=== PATIENT | female | born 1980 | race Two or more races ===

== ENCOUNTER 2021-05-29 14:47 | Outpatient (REF) | payer OTHER, SELFPAY | END 2021-05-29 14:48 | disposition home or self-care (01) | LOC: HO.LAB 14:47 | PROVIDERS: Visit Provider Internal Medicine | DX: Z20.822 Contact with and (suspected) exposure to COVID-19 (principal) | CPT/HCPCS: C9803; U0003; U0005 ==

== ENCOUNTER 2021-10-05 17:09 | Emergency (ER) | payer OTHER, SELFPAY | END 2021-10-05 18:08 | disposition left against medical advice (07) | PROVIDERS: Emergency Provider Emergency Medicine | DX: R42 Dizziness and giddiness (principal); R11.0 Nausea ==

== ENCOUNTER 2021-10-18 21:54 | Emergency (ER) | payer OTHER, SELFPAY ==
--- NOTE | ~2021-10-18 | XR_ITS ---
EXAMINATION: XR LUMBOSACRAL SPINE CLINICAL INFORMATION: Back pain. COMPARISON: None TECHNIQUE: Three views of the lumbosacral spine. FINDINGS: Lumbar vertebrae have normal height and normal alignment. There is no fracture or bone destruction. There is mild degenerative lipping at the anterior endplates of lower thoracic and lumbar vertebrae. Mild degenerative facet joint arthrosis at the lumbosacral junction. Lumbar disc heights are normal. No spondylolysis is or spondylolysis. XR/XR lumbar spine 2-3V IMPRESSION: 1. No acute abnormality. 2. Mild degenerative spondylosis of the lumbar spine.
[2021-10-18 21:57] VITALS: BP 150/88; PULSE 94; RESP 18; TEMP 36.3; O2SAT 99; BMI 32.1
[2021-10-19 00:01] LABS: Appearance Urine CLEAR; Color Urine STRAW; Glucose Urine UA >=1000 MG/DL (NEG); Leukocyte Esterase Urine NEG (NEG); Nitrite Urine NEG (NEG); Urine Blood NEG (NEG); Urine Ketones NEG (NEG); Urine Protein NEG (NEG-TRACE)
[2021-10-19 00:02] LABS: UACC Culture Trigger NO
[2021-10-19 00:04] LABS: UPreg QC Valid YES; Urine Pregnancy NEGATIVE (NEGATIVE)
[2021-10-19 00:48] LABS: RBC Urine 0 /HPF (0); Squamous Epithelial Cell Urine 2+ /LPF; WBC Urine 0-2 /HPF (0-4)
--- NOTE | 2021-10-19 01:02 | ED_ITS ---
HPI - Back Pain/Injury General Chief Complaint: Back Pain/Injury Stated Complaint: left lower back pain Time Seen by Provider: 10/18/21 23:04 Source: patient Mode of arrival: ambulatory Limitations: no limitations History of Present Illness HPI Narrative: 41-year-old female presents to ED for low back pain for 2 weeks that's worse on movement. Patient's secondary complaint is that she wants to get tested for to make sure there is no . Patient denies any abdominal pain, nausea, vomiting, fever, chills, flank, dysuria, hematuria, or vaginal bleeding. Related Data Allergies Allergy/AdvReac Type Severity Reaction Status Date / Time No Known Allergies Allergy Verified 10/18/21 23:12 Review of Systems Review of Systems: Yes all other systems are reviewed and are negative Constitutional: Constitutional: Reports as per HPI and Reports no additional constitutional complaints Eyes: Eyes: Reports as per HPI and Reports no additional eye complaints ENT: Reports system reviewed and no additional complaints, except as documented and Reports as per HPI Cardiovascular: Cardiovascular: Reports as per HPI and Reports no additional cardiovascular complaints Respiratory: Respiratory: Reports as per HPI and Reports no additional respiratory complaints Gastrointestinal: Gastrointestinal: Reports as per HPI and Reports no additional gastrointestinal complaints Musculoskeletal: Musculoskeletal: Reports no additional musculoskeletal complaints, Reports as per HPI and Reports back pain Neurologic: Reports system reviewed and no additional complaints, except as documented and Reports as per HPI Psychiatric: Psychiatric: Reports no additional psychiatric complaints and Reports as per HPI [facility] Social History Social History Advance Directives: No Advance Directives Information Provided: Yes Patient : No Physical Exam Vital Signs: Vital Signs: Last Vital Signs Temp 97.3 F 10/18/21 21:57 Pulse 94 10/18/21 21:57 Resp 18 10/18/21 21:57 BP 150/88 H 10/18/21 21:57 Pulse Ox 99 10/18/21 21:57 BMI result Body Mass Index 32.1 Const: General: cooperative, healthy appearing, comfortable, no acute distress, well developed, alert, awake and Physically active Orientation/consciousness: patient oriented x3 HENMT: Head: Yes normal to inspection, Yes No palpable skull fracture present, Yes normocephalic, Yes atraumatic and No abrasion Eyes: General: appearance normal, both eyes and all related structures Neck: Neck: Yes normal visual inspection, Yes full ROM, Yes no lymphadenopathy, Yes no meningeal signs, Yes trachea midline, Yes supple, No anterior neck swelling and No tender Chest: Chest palpation & inspection: normal inspection of the chest and normal palpation of entire chest wall Resp: Effort & Inspection: normal respiratory effort and able to speak in complete sentences Auscultation: clear to auscultation bilaterally Cardio: Jugular venous distension: no JVD Heart sounds: S1 normal heart sound present and S2 normal heart sound present GI: Inspection: Yes normal to inspection and No abdominal wall ecchymosis Palpation (GI): Soft to palpation, not firm, nontender, no guarding and not rigid : General: No CVA tenderness and Yes no CVA tenderness Back/Spine/Pelvis: Back: no CVA tenderness, No CVA tenderness and back tenderness (lumbar) Skin: General skin exam: no rashes or lesions noted and elasticity normal Neuro: General: patient oriented x3, gait normal, no meningeal signs and CN's II-XI intact bilaterally Cranial nerves: Yes CN's II-XII intact bilaterally Extrem: General: Yes normal to inspection and Yes full ROM Psych: Appearance: grossly normal, well kempt and not disheveled Course Course Course Narrative: Lumbar x-ray and urine ordered. Reevaluation(s) Reevaluation #1: Urine negative for infection or . Lumbar x-ray show arthritis. Patient refused pain medication will follow-up with OBGYN because she still believes she is although she taken three test that were negative. Patient has normal gait. Patient denies any urinary/bowel incontinence. Not suspecting cord compression or epidural abscess.. Time: 01:04 MDM - Back Pain/Injury MDM Narrative Medical decision making narrative: Lumbar radicular past Lab Data Labs: Lab Results 10/18/21 10/18/21 Range/Units 23:51 23:51 Urine Color STRAW Urine Appearance CLEAR Urine pH 6.0 (5.0-8.0) Ur Specific [place] 1.010 (1.005-1.025) Urine Protein NEG (NEG-TRACE) MG/DL Urine Glucose (UA) >=1000 H (NEG) MG/DL Urine Ketones NEG (NEG) MG/DL Urine Blood NEG (NEG) Urine Nitrite NEG (NEG) Ur Leukocyte Esterase NEG (NEG) Urine RBC 0 (0) /HPF Urine WBC 0-2 (0-4) /HPF Ur Squamous Epith Cells 2+ /LPF Urine Bacteria NONE /LPF Urine Test NEGATIVE (NEGATIVE) Discharge Plan Discharge Clinical Impression: Lumbar radiculopathy Patient Disposition: Home, Self-Care Instructions: Lumbar Radiculopathy (ED) Additional Instructions: Corbin radiograf?a muestra que tiene artritis de la columna lumbar. Corbin orina result? negativa para infecci?n y negativa para embarazo. Regrese al servicio de urgencias de inmediato si tiene incontinencia urinaria / intestinal, dolor abdominal, n?useas, v?mitos, fiebre, escalofr?os, disuria, hematuria o cualquier otro s?ntoma que le preocupe. Po un seguimiento con el proveedor de atenci?n primaria. Interventions: ED Discharge Assessment Last Done: 10/19/21 01:20 Discharge Date/Time: 10/19/21 01:26 Print Language: Pashto
--- NOTE | 2021-10-19 01:07 | PC.NURSE ---
PT TEST WAS NEGATIVE AND PT AND BELIEVE PT IS . PT HAS A REGULAR OBGYN AND WILL F/U WITH HER AT THIS TIME SHE DECLINED ALL MEDICATION AT THIS TIME. PT WILL GET HER HORMONES AND LEVELS CHECKED WITH HER OBGYN.
--- NOTE | 2021-10-19 01:25 | PC.NURSE ---
PT MED RETURNED TO [facility] PT DECLINES ALL MEDS DO TO BELIEVES SHE IS AND WILL F/U WITH OBGYN MAY USE OTC TYLENOL FOR PAIN.
== END 2021-10-19 01:26 | disposition home or self-care (01) ==
PROVIDERS: Physician Assistant; Emergency Provider Emergency Medicine; PCP Internal Medicine
DX: M54.16 Radiculopathy, lumbar region (principal); M54.50 Low back pain, unspecified; Z79.899 Other long term (current) drug therapy
CPT/HCPCS: 72100; 81001; 81003; 81025; 99283; 99284

== ENCOUNTER 2022-02-15 11:51 | Emergency (ER) | payer OTHER, SELFPAY ==
--- NOTE | ~2022-02-15 | XR_ITS ---
EXAMINATION: XR CHEST CLINICAL INFORMATION: Cough. COMPARISON: None TECHNIQUE: 2 views of the chest were obtained. FINDINGS: No significant abnormality is noted involving the heart, lungs, mediastinum, bony thorax or soft tissues. XR/XR chest 2V IMPRESSION: Unremarkable chest exam.
[2022-02-15 12:48] VITALS: BP 129/75; PULSE 102; RESP 18; TEMP 38.8; O2SAT 97; BMI 28.8
[2022-02-15 13:31] LABS: COVID-19 Test Negative (Negative); IDNOW Serial# 16C4AD1C; Influenza A Negative (Negative); Influenza B2 Negative (Negative)
[2022-02-15 14:44] VITALS: BP 124/64; PULSE 104; RESP 18; TEMP 38.6; O2SAT 98
[2022-02-15] MEDS: Ibuprofen 600 MG TABLET PO (14:54)
--- NOTE | 2022-02-15 15:08 | ED_ITS ---
HPI - URI/Sore Throat General Chief Complaint: Upper Respiratory Symptoms Stated Complaint: Covid symptoms Time Seen by Provider: 02/15/22 13:47 History of Present Illness HPI Narrative: Patient complains of fever cough body aches and fatigue as well as nasal congestion, the cough there is no sputum there is no chest pain no difficulty breathing, no sore throat, no difficulty swallowing no abdominal pain no nausea vomiting Related Data Previous Rx's Medication Instructions Recorded acetaminophen 500 mg tablet 1,000 mg PO QID PRN #30 tab 02/15/22 ibuprofen 600 mg tablet 600 mg PO Q6H PRN #20 tab 02/15/22 Allergies Allergy/AdvReac Type Severity Reaction Status Date / Time No Known Allergies Allergy Verified 02/15/22 12:46 Review of Systems Review of Systems: Positive for cough fever body aches and nasal congestion Negatives are no dizziness no weakness no confusion no stiff neck no headache no sore throat no chest pain no sputum no shortness of breath no abdominal pain no nausea vomiting or diarrhea no skin rash Yes all other systems are reviewed and are negative PMFSH Past Medical History Source: nursing notes reviewed Medical History (Updated 02/15/22 @ 15:10 by MAX Gaona) Diabetes Social History Social History Advance Directives: No Advance Directives Information Provided: No Patient : No Physical Exam Vital Signs: Vital Signs: Last Vital Signs Temp 101.4 F H 02/15/22 14:44 Pulse 104 H 02/15/22 14:44 Resp 18 02/15/22 14:44 BP 124/64 02/15/22 14:44 Pulse Ox 98 02/15/22 14:44 BMI result Body Mass Index 28.8 General appearance no acute distress The eyes no redness or discharge The pharynx no redness swelling or exudate, membranes are moist Neck is supple Chest clear to auscultation bilateral Heart no murmur Abdomen soft nontender Skin no rash Extremities full range of motion x4 Course Course Course Narrative: Patient tested negative for COVID and flu, but does have a heavy it exposure in that she was [employer] for a patient who has COVID She has triple vaccination but it is likely that this is COVID despite the negative test She has a fever but is otherwise well-appearing eating and drinking normally tolerating p.o. and breathing comfortably and is discharged MDM - URI/Sore Throat Lab Data Labs: Lab Results 02/15/22 02/15/22 Range/Units 12:55 12:55 COVID-19 (LILIANA) Negative (Negative) COVID-19 Clin Com See Note Influenza Type A (SANGEETA) Negative (Negative) Influenza Type B (SANGEETA) Negative (Negative) Influenza A & B Note See Note Discharge Plan Discharge Clinical Impression: Acute viral syndrome Patient Disposition: Home, Self-Care Additional Instructions: Your COVID and flu tests were negative today, but the symptoms of fever cough congestion could certainly be COVID You had a very close exposure so best plan is take off work for 1 week and keep a distance from vulnerable people as there is still a good chance you have COVID Return any time for difficulty breathing vomiting any worse condition or any concerns Drink plenty of fluids, Tylenol or Motrin as needed for fever and body aches Prescriptions: New ibuprofen 600 mg tablet 600 mg PO Q6H PRN (Reason: fever or pain) Qty: 20 0RF acetaminophen 500 mg tablet 1,000 mg PO QID PRN (Reason: pain) Qty: 30 0RF Stand Alone Forms: Work/School Release Interventions: ED Discharge Assessment Last Done: 02/15/22 15:21 Discharge Date/Time: 02/15/22 15:22
== END 2022-02-15 15:22 | disposition home or self-care (01) ==
PROVIDERS: Emergency Provider Emergency Medicine
DX: B34.9 Viral infection, unspecified (principal); Z20.822 Contact with and (suspected) exposure to COVID-19; R50.9 Fever, unspecified; E11.9 Type 2 diabetes mellitus without complications
CPT/HCPCS: 71046; 87502; 87635; 99283; 99284

== ENCOUNTER 2022-10-14 14:56 | Emergency (ER) | payer OTHER, SELFPAY ==
--- NOTE | ~2022-10-14 | XR_ITS ---
EXAMINATION: XR HAND, RIGHT CLINICAL INFORMATION: Pain after injury COMPARISON: None TECHNIQUE: PA, lateral, and oblique views of the right hand. FINDINGS: Visualized portion of the distal radius and ulna demonstrate no fracture. There is ulnar negative variance. Carpal rows are well aligned without carpal bone fracture. No metacarpal or phalangeal fracture. Minimal degenerative changes of scattered IP joints. There appears to be mild focal soft tissue swelling adjacent to the proximal second PIP joint. No radiopaque foreign body. Vascular calcifications noted. XR/XR hand RT 2V IMPRESSION: Minimal degenerative changes of the right hand without fracture.
--- NOTE | 2022-10-14 16:13 | ED_ITS ---
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 Patient states that the other day she jammed it and it still hurts. Patient denies any dizziness, lightheadedness, abdominal pain, nausea, vomiting, fever, chills, blurry vision, double vision, loss of vision, chest pain, difficulty breathing, shortness of breath, back pain, night sweats, pain with urination, increased urinary frequency, increased urinary urgency, blood in her urine or stool, syncope or a near syncopal episode, bowel incontinence, bladder incontinence, bowel retention, bladder retention, or any other complaints at this time. Onset (ago): day(s) Location: right and upper extremity Radiation: non-radiation Severity: mild Severity scale (1-10): 3 Quality: aching and dull Pain Consistency: constant Relieving factors: none Exacerbating factors: none Associated symptoms: denies other symptoms Treatments prior to arrival: none Related Data Previous Rx's Medication Instructions Recorded acetaminophen 500 mg tablet 1,000 mg PO QID PRN pain #30 tabs 02/15/22 ibuprofen 600 mg tablet 600 mg PO Q6H PRN fever or pain 02/15/22 #20 tabs Allergies Allergy/AdvReac Type Severity Reaction Status Date / Time No Known Allergies Allergy Verified 02/15/22 12:46 Review of Systems Constitutional: Constitutional: Reports no additional constitutional complaints, Denies chills, Denies fever(s) and Denies night sweats Eyes: Eyes: Reports no additional eye complaints, Denies blurry vision, Denies change in vision, Denies diplopia, Denies eye discharge, Denies loss of vision and Denies eye pain ENT: Denies dizziness Cardiovascular: Cardiovascular: Reports no additional cardiovascular complaints, Denies chest pain, Denies lightheadedness, Denies Loss of Consciousness and Denies dyspnea Respiratory: Respiratory: Reports no additional respiratory complaints and Denies dyspnea Gastrointestinal: Gastrointestinal: Reports no additional gastrointestinal complaints, Denies abdominal pain, Denies melena, Denies hematochezia, Denies change in bowel habits and Denies change in stool character Genitourinary: Genitourinary: Denies hematuria, Denies urinary frequency, Denies dysuria, Denies urinary incontinence, Denies urinary hesitancy and Denies urinary urgency Musculoskeletal: Musculoskeletal: Reports no additional musculoskeletal complaints, Denies numbness and Denies tingling Comments: right hand pain Neurologic: Denies dizziness, Denies loss of vision, Denies numbness and Denies tingling Psychiatric: Psychiatric: Reports no additional psychiatric complaints Endocrine: Endocrine: Reports no additional endocrine complaints Hematologic/Lymphatic: Hematologic/Lymphatic: Reports no additional hematologic/lymphatic complaints Allergic/Immunologic: Allergic/Immunologic: Reports no additional allergic/immunologic complaints [facility] Past Medical History Attestation statement: The following information was validated with the patient. Source: old records reviewed Medical History Diabetes Physical Exam ED Vital Signs: Vital Signs - 24 hr 10/14/22 16:14 Temperature 98.0 F Pulse Rate 82 Respiratory Rate 18 Blood Pressure 137/69 Pulse Oximetry 98 Oxygen Delivery Method Room Air BMI result Body Mass Index 32.1 Const General: cooperative, no acute distress, alert and awake Nutritional Appearance: well nourished Orientation/consciousness: patient oriented x3 Limitations: no limitations HENMT Head: Yes normal to inspection and Yes atraumatic Ears: hearing grossly normal bilaterally and external ears normal General nose exam: Normal external nose present, no nasal discharge noted and no epistaxis Face and sinus: Yes normal facial exam, No abrasion and No laceration Mouth: Normal oral and palatal mucosa present, no drooling and no muffled voice Eyes General: appearance normal, both eyes and all related structures Periorbital: periorbital findings normal Eyelids: Yes eyelids normal Conjunctivae: conjunctivae normal Pupils: Equal, round and reactive pupils present EOM: EOMs intact bilaterally Neck Neck: Yes normal visual inspection, Yes full ROM and Yes no lymphadenopathy Chest Chest palpation & inspection: normal inspection of the chest Resp Effort & Inspection: normal respiratory effort and able to speak in complete sentences Auscultation: clear to auscultation bilaterally Cardio Rate: regular rate Rhythm: regular rhythm GI Inspection: Yes normal to inspection Neuro General: patient oriented x3 and moves all extremities Cranial nerves: Yes Equal, round and reactive pupils present Cognition (Neuro): normal cognition Motor exam (neuro): 5/5 motor strength present throughout Sensory Exam: Normal double simultaneous stimulation for sensation Coordination: [id number] test normal Extrem General: Yes normal to inspection, Yes full ROM and Yes capillary refill normal Psych Appearance: grossly normal Mental Status: mental status grossly normal Affect: normal affect Attitude: cooperative Thought process: Normal thought process present Thought content: Normal thought content present Insight: Good insight present (Psych) Medical Decision Making MDM Narrative Medical decision making narrative: Patient is a 42 year old assigned female at with no reported medical history presenting to the emergency department today with right hand pain. Patient's physical exam was unremarkable. Patient's right hand x-ray showed no acute process. I explained my physical exam findings as well as all test results to the patient. I answered all questions asked by the patient. I stressed the importance of the patient taking her medication as prescribed. I stressed the importance of the patient following up with her primary care provider. I stressed the importance of the patient returning to the emergency department immediately if her symptoms were to worsen or if she were to develop any dizziness, shortness of breath, difficulty breathing, chest pain, blurry vision, loss of vision, nausea, vomiting, abdominal pain, fever, chills, back pain, or any other complaints. Patient verbalized agreement and understanding with this treatment plan and discharge. Medical Records Medical records reviewed: Yes I reviewed the patient's medical records. Imaging Data Right hand x-ray: Attestation: I personally reviewed and interpreted this imaging study as follows: My impression: No acute process. Radiologist's impression: EXAMINATION: XR HAND, RIGHT CLINICAL INFORMATION: Pain after injury? COMPARISON: None? TECHNIQUE: PA, lateral, and oblique views of the right hand. FINDINGS: Visualized portion of the distal radius and ulna demonstrate no fracture. There is ulnar negative variance. Carpal rows are well aligned without carpal bone fracture. No metacarpal or phalangeal fracture. Minimal degenerative changes of scattered IP joints. There appears to be mild focal soft tissue swelling adjacent to the proximal second PIP joint. No radiopaque foreign body. Vascular calcifications noted.? XR/XR hand RT 2V IMPRESSION: Minimal degenerative changes of the right hand without fracture. Dictated By: Enrique Chu MD Signed By: Electronically signed by Enrique Chu MD 10/14/22 1556 Discharge Plan Discharge Clinical Impression: Hand sprain Patient Disposition: Home, Self-Care Instructions: Sprain (ED) Additional Instructions: Follow up with your primary care provider. Return to the emergency department immediately if your symptoms worsen or if you develop any dizziness, shortness of breath, difficulty breathing, chest pain, blurry vision, loss of vision, nausea, vomiting, abdominal pain, fever, chills, back pain, or any other complaints. Po un seguimiento con alfaro proveedor de atenci?n primaria. Regrese al departamento de emergencias de inmediato si saurav s?ntomas empeoran o si presenta mareos, falta de aire, dificultad para respirar, dolor de pecho, visi?n borrosa, p?rdida de la visi?n, n?useas, v?mitos, dolor abdominal, fiebre, escalofr?os, dolor de espalda o cualquier otras quejas. Prescriptions: No Action ibuprofen 600 mg tablet 600 mg PO Q6H PRN (Reason: fever or pain) Qty: 20 0RF acetaminophen 500 mg tablet 1,000 mg PO QID PRN (Reason: pain) Qty: 30 0RF Referrals: [facility] [place] Family Medicine [Provider Group] (Call to establish and follow up with a primary care provider. If you already have a primary care provider, please follow up with them. Llame para establecer y hacer un seguimiento con un proveedor de atenci?n primaria. Si ya tiene un proveedor de atenci?n primaria, po un seguimiento con ?l.) [facility] [place] Primary CareAlexandra [Provider Group] (Call to establish and follow up with a primary care provider. If you already have a primary care provider, please follow up with them. Llame para establecer y hacer un seguimiento con un proveedor de atenci?n primaria. Si ya tiene un proveedor de atenci?n primaria, po un seguimiento con ?l.) [facility] [place] Primary CareMignon [Provider Group] (Call to establish and follow up with a primary care provider. If you already have a primary care provider, please follow up with them. Llame para establecer y hacer un seguimiento con un proveedor de atenci?n primaria. Si ya tiene un proveedor de atenci?n primaria, po un seguimiento con ?l.) Stand Alone Forms: Work/School Release Print Language: Yi
[2022-10-14 16:14] VITALS: BP 137/69; PULSE 82; RESP 18; TEMP 36.7; O2SAT 98; BMI 32.1
--- OUTSIDE RECORDS SUMMARY | 2022-10-14 16:34 | XMS_ITS | Continuity of Care Document ---
:1980 Author Organization [facility] Address [address] [place] [address]- Care Team Providers Name Role Phone Edwina PHAM, Natalie Primary Care Physician [facility]counter [facility] Date(s): 11/30/21 - 12/30/21 [facility] [address] [place] [id number]- Encounter Diagnosis Diabetes (Discharge Diagnosis) - 12/01/21 Allergies, Adverse Reactions, Alerts No Known Allergies Immunizations Given and Recorded Vaccine Date Status Refusal Reason SARS-CoV-2 (COVID-19) mRNA BNT-162b2 vac 11/29/21 Recorde d SARS-CoV-2 (COVID-19) mRNA BNT-162b2 vac 04/14/21 Given tetanus/diphtheria/pertussis, acel(Tdap) 10/06/20 Given influenza virus vaccine, inactivated 10/06/20 Given Medications atorvastatin 10 mg oral tablet 1 tablet = 10 mg, By Mouth, Daily, label in cape ver[place]an daily in bedtime, # 90 tablet, 3 Refills, Maintenance, 09/30/20 11:11:00 EST, [facility], 156, cm,09/30/20 10:26:00 EST, Height Start Date: 09/30/20 Status: OrderedFreestyle Lite Test Strips See Instructions, # 90 each, Refills 3, Tot. Refills 3, Maintenance, take bs qhs for insulin dependent Type 2 Diabetes Mellitus, 10/23/21 11:03:00 EST, Supply, 156, cm, 10/23/21 10:39:00 EST, Height Start Date: 10/23/21 Stop Date: 10/18/22 Status: Orderedgabapentin 300 mg oral capsule 300 mg, 1, capsule, By Mouth, Daily at bedtime, label in c[place] ver[place], # 90 capsule, Refills 1, Tot. Refills 1, Maintenance, 09/12/20 10:24:00 EDT, Route to Pharmacy Electronically, [facility], 156, cm, 09/12/20 9:33:00 EDT, Height Start Date: 09/12/20 Status: OrderedLantus Solostar Pen 100 units/mL subcutaneous solution = 55 units, Subcutaneous Infusion, Daily, daily in am label in cape ver[place]an, # 13.5 mL, 11 Refills, Maintenance, 12/01/21 12:58:00 EST, [facility], 156, cm, 10/23/21 11:14:00 EST, Height Start Date: 12/01/21 Status: Orderedlisinopril 10 mg oral tablet 10 mg, 1, tablet, By Mouth, Daily, # 90 tablet, Refills 3, Tot. Refills 3, Maintenance, 10/23/21 11:15:00 EST, Route to Pharmacy Electronically, [facility], Partial fill upon patient request if the prescription is for a schedule II opi... Start Date: 10/23/21 Status: OrderedmetFORMIN 1000 mg oral tablet, extended release 1 tablet = 1,000 mg, By Mouth, 2 times a day, label in cape verdean, # 180 tablet, 4 Refills, Maintenance, 03/29/21 9:27:00 EDT, [facility], TO REPLACE 500 mg tablets - please review change with patient, 156, cm, 03/29/21 8:21:00 EDT, Height Start Date: 03/29/21 Stop Date: 06/22/22 Status: Orderedsertraline 100 mg oral tablet 1 tablet = 100 mg, By Mouth, Daily, instr cape verdean; start after completing 50 mg tablets, # 30 tablet, 11 Refills, Maintenance, 07/10/21 15:51:00 EDT, Tablet, [facility], Partial fill upon patient request if the prescription is for a sc... Start Date: 07/10/21 Status: OrderedTrulicity Pen 1.5 mg/0.5 mL subcutaneous solution 0.5 mL = 1.5 mg, Subcutaneous Injection, Every Saturday, rotate injection sites label in cape verdean, #2 mL, 11 Refills, Maintenance, 09/30/20 10:55:00 EST, Solution, [facility], Partial fill upon patient request, 156, cm, 09/30/20 10:2... Start Date: 09/30/20 Status: Ordered Problem List Condition Effective Dates Status Health Status Informant Atopic dermatitis(Confirmed) Active Overweight (BMI 25.0-29.9)(Confirmed) Active Essential hypertension(Confirmed) Active Hyperlipidemia(Confirmed) Active Insulin dependent type 2 diabetes Active mellitus(Confirmed) Depression with anxiety(Confirmed) Active Obese class I(Confirmed) Active Diabetic retinopathy(Confirmed) Active Diagnosis Diagnosis Type Effective Dates Health Status Clinical Serv ice Informant Diabetes Discharge 12/01/21 Non-Specified Diagnosis Social History Social History Type Response Smoking Status Never (less than 100 in life time) entered on: 09/12/20 Sex
--- OUTSIDE RECORDS SUMMARY | 2022-10-14 16:34 | XMS_ITS | Continuity of Care Document ---
:1980 Author Organization [facility] Address [address] [place] [address]- Care Team Providers Name Role Phone Natalie Bland MD Primary Care Physician Encounter [facility] Date(s): 01/08/22 - 03/22/22 [facility] [address] [place] [id number] Attending Physician: Enzo Anderson MD Admitting Physician: Enzo Anderson MD Allergies, Adverse Reactions, Alerts No Known Allergies Immunizations Given and Recorded Vaccine Date Status Refusal Reason SARS-CoV-2 (COVID-19) mRNA BNT-162b2 vac 11/29/21 Recorde d SARS-CoV-2 (COVID-19) mRNA BNT-162b2 vac 04/14/21 Given tetanus/diphtheria/pertussis, acel(Tdap) 10/06/20 Given influenza virus vaccine, inactivated 10/06/20 Given Medications atorvastatin 10 mg oral tablet 1 tablet = 10 mg, By Mouth, Daily, label in belgian daily in bedtime, # 90 tablet, 3 Refills, Maintenance, 09/30/20 11:11:00 EST, [facility], 156, [...] By Mouth, Daily at bedtime, label in belgian, # 90 capsule, Refills 1, Tot. Refills 1, Maintenance, 09/12/20 10:24:00 EDT, Route to Pharmacy Electronically, [facility]., 156, cm, 09/12/20 9:33:00 EDT, Height Start Date: 09/12/20 Status: OrderedJardiance 10 mg oral tablet 1 tablet = 10 mg, By Mouth, Daily in AM, # 30 tablet, 2 Refills, Maintenance, 03/22/22 15:57:00 EDT,Tablet, [facility], Partial fill upon patient request if the prescription is for a schedule II opioid drug., 156, cm, 03/22/22 15:05:0... Start Date: 03/22/22 Status: OrderedLantus Solostar Pen 100 units/mL subcutaneous solution = 55 units, Subcutaneous Infusion, Daily, daily in am label in belgian, # 15 mL, 11 Refills, Maintenance, 03/22/22 15:57:00 EDT, [facility]., 156, cm, 03/22/22 15:05:00 EDT, Height Start Date: 03/22/22 Status: Orderedlidocaine 5% topical cream 1 application, Topically, 3 times a day, PRN Pain , Moderate, # 15 Gm, 0 Refills, Maintenance, 01/05/22 13:02:00 EST, Cream, [facility]., Partial fill upon patient request if the prescription is for a schedule II opioid drug., 1 applica... Start Date: 01/05/22 Status: Orderedlisinopril 10 mg oral tablet 10 mg, 1, tablet, By Mouth, Daily, # 90 tablet, Refills 3, Tot. Refills 3, Maintenance, 10/23/21 11:15:00 EST, Route to Pharmacy Electronically, [facility], Partial fill upon patient request if the prescription is for a schedule II opi... Start Date: 10/23/21 Status: Orderedmeloxicam 15 mg oral tablet 1 tablet = 15 mg, By Mouth, Daily, # 14 tablet, 0 Refills, Maintenance, 01/24/22 15:01:00 EST, Tablet, [facility]., Partial fill upon patient request if the prescription is for a schedule II opioid drug., 156, cm, 01/24/22 14:31:00 EST,... Start Date: 01/24/22 Stop Date: 02/07/22 Status: OrderedmetFORMIN 1000 mg oral tablet, extended release 1 tablet = 1,000 mg, By Mouth, 2 times a day, label in belgian, # 180 tablet, 4 Refills, Maintenance, 03/29/21 9:27:00 EDT, [facility], TO REPLACE 500 mg tablets - please review change with patient, 156, cm, 03/29/21 8:21:00 EDT, Height Start Date: 03/29/21 Stop Date: 06/22/22 Status: Orderedsertraline 100 mg oral tablet 1 tablet = 100 mg, By Mouth, Daily, instr belgian; start after completing 50 mg tablets, # 30 tablet, 11 Refills, Maintenance, 07/10/21 15:51:00 EDT, Tablet, [facility], Partial fill upon patient request if the prescription is for a sc... 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
--- OUTSIDE RECORDS SUMMARY | 2022-10-14 16:34 | XMS_ITS | Continuity of Care Document ---
:1980 Author Organization [facility] Address [address] [place] [address]- Care Team Providers Name Role Phone Kim Archer DO Primary Care Physician Encounter [facility] Date(s): 03/06/21 - 04/30/21 [facility] [address] [place] [id number] Attending Physician: Campbell Russell MD Admitting Physician: Campbell Russell MD Allergies, Adverse Reactions, Alerts Substance Reaction Severity Status NKA Active Immunizations Given and Recorded Vaccine Date Status Refusal Reason SARS-CoV-2 (COVID-19) mRNA BNT-162b2 vac 04/14/21 Given tetanus/diphtheria/pertussis, acel(Tdap) 10/06/20 Given influenza virus vaccine, inactivated 10/06/20 Given Medications atorvastatin 10 mg oral tablet 1 tablet = 10 mg, By Mouth, Daily, label in belarusian daily in bedtime, # 90 tablet, 3 Refills, Maintenance, 09/30/20 11:11:00 EST, [facility], [facility], 156, cm,09/30/20 10:26:00 EST, Height Start Date: 09/30/20 Status: OrderedBlood Pressure Monitor See Instructions, # 1 each, Refills 0, Tot. Refills 0, Maintenance, Use to check Blood pressure daily dx: I10 on lisinopril, 03/29/21 9:30:00 EDT, Compound Start Date: 03/29/21 Status: OrderedCANCEL METFORMIN 1000 mg script CANCEL METFORMIN 1000 mg script, See Instructions, # 1 each, Refills 0, Tot. Refills 0, Maintenance,continue metformin 500 mg 2 tablets BID, 03/06/21 10:33:00 EDT, Supply, 156, cm, 03/06/21 10:12:00 EDT, Height Start Date: 03/06/21 Status: Orderedcetirizine 10 mg oral tablet 1 tablet = 10 mg, By Mouth, Daily, # 30 tablet, 0 Refills, Maintenance, 04/25/21 13:48:00 EDT, Tablet, [facility]., Partial fill upon patient request if the prescription is for a schedule II opioid drug., 156, cm, 04/25/21 13:01:00 EDT,... Start Date: 04/25/21 Status: OrderedFreestyle Lite Lancets See Instructions, # 600 each, Refills 2, Tot. Refills 2, Maintenance, Take BS daily in AM use as directed for Type 2 Diabetes Mellitus, 09/12/20 10:05:00 EDT, Supply, 156, cm, 09/12/20 9:33:00 EDT, Height Start Date: 09/12/20 Stop Date: 06/09/21 Status: OrderedFreestyle Lite Monitor See Instructions, # 3 each, Refills 2, Tot. Refills 2, Maintenance, take blood sugar daily use as directed for Type 2 Diabetes Mellitus, 09/12/20 10:07:00 EDT, Supply, 156, cm, 09/12/20 9:33:00 EDT, Height Start Date: 09/12/20 Stop Date: 06/09/21 Status: OrderedFreestyle Lite Test Strips See Instructions, # 600 each, Tot. Refills 2, Maintenance, take bs daily in am use as directed for Type 2 Diabetes Mellitus, 09/12/20 10:08:00 EDT, Supply, 156, cm, 09/12/20 9:33:00 EDT, Height Start Date: 09/12/20 Stop Date: 12/11/20 Status: Orderedgabapentin 300 mg oral capsule 300 mg, 1, capsule, By Mouth, Daily at bedtime, label in belarusian, # 90 capsule, Refills 1, Tot. Refills 1, Maintenance, 09/12/20 10:24:00 EDT, Route to Pharmacy Electronically, [facility]., 156, cm, 09/12/20 9:33:00 EDT, Height Start Date: 09/12/20 Status: OrderedLac-Hydrin 12% lotion 1 application, Topically, 2 times a day, instr belarusian, # 567 Gm, 1 Refills, Maintenance, 01/12/21 16:46:00 EST, Lotion, [facility], Partial fill upon patient request if the prescription is for a schedule II opioid drug., 1 application... Start Date: 01/12/21 Status: OrderedLantus Solostar Pen 100 units/mL subcutaneous solution = 55 units, Subcutaneous Infusion, Daily, daily in am label in belarusian, # 13.5 mL, 11 Refills, Maintenance, 01/30/21 14:01:00 EDT, [facility], 156, cm, 01/12/21 16:08:00 EST, Height Start Date: 01/30/21 Status: Orderedlisinopril 5 mg oral tablet 5 mg, 1, tablet, By Mouth, Daily, label in belarusian, # 90 tablet, Refills 11, Tot. Refills 11, Maintenance, 09/12/20 10:21:00 EDT, Route to Pharmacy Electronically, [facility], 156, cm, 09/12/20 9:33:00 EDT, Height Start Date: 09/12/20 Status: OrderedmetFORMIN 1000 mg oral tablet, extended release 1 tablet = 1,000 mg, By Mouth, 2 times a day, label in belarusian, # 180 tablet, 4 Refills, Maintenance, 03/29/21 9:27:00 EDT, [facility], TO REPLACE 500 mg tablets - please review change with patient, 156, cm, 03/29/21 8:21:00 EDT, Height Start Date: 03/29/21 Stop Date: 06/22/22 Status: Orderedsertraline 25 mg oral tablet 1 tablet = 25 mg, By Mouth, Daily, label in belarusian, # 30 tablet, 11 Refills, Maintenance, 12/09/20 9:47:00 EST, Tablet, [facility], Partial fill upon patient request if the prescription is for a schedule II opioid drug., 156, cm, 09/18... Start Date: 12/09/20 Status: OrderedTrulicity Pen 1.5 mg/0.5 mL subcutaneous solution 0.5 mL = 1.5 mg, Subcutaneous Injection, Every week, rotate injection sites label in belarusian, # 2 mL, 11 Refills, Maintenance, 09/30/20 10:55:00 EST, Solution, [facility], [facility] upon patient request, 156, cm, 09/30/20 10:26:00... Start Date: 09/30/20 Status: Ordered Problem List Condition Effective Dates Status Health Status Informant Atopic dermatitis(Confirmed) Active Diabetes(Confirmed) Active Essential hypertension(Confirmed) Active Hyperlipidemia(Confirmed) Active Depression with anxiety(Confirmed) Active Fatty liver disease, Active nonalcoholic(Confirmed) Obesity (BMI 30.0-34.9)(Confirmed) Active Diabetic retinopathy(Confirmed) Active Social History Social History Type Response Smoking Status Never (less than 100 in life time) entered on: 09/12/20 Sex
--- OUTSIDE RECORDS SUMMARY | 2022-10-14 16:34 | XMS_ITS | Continuity of Care Document ---
:1980 Author Organization [facility] Address [address] [place] [phone]- Care Team Providers Name Role Phone Kim Archer DO Primary Care Physician [facility] Date(s): 07/27/21 - 08/26/21 [facility] [address] [place] [id number] Attending Physician: AdmShavon chong Admitting Physician: AdmtrShavon Referring Physician: Admtr, Ar8 Allergies, Adverse Reactions, Alerts Substance Reaction Severity Status NKA Active Immunizations Given and Recorded Vaccine Date Status Refusal Reason SARS-CoV-2 (COVID-19) mRNA BNT-162b2 vac 04/14/21 Given tetanus/diphtheria/pertussis, acel(Tdap) 10/06/20 Given influenza virus vaccine, inactivated 10/06/20 Given Medications atorvastatin 10 mg oral tablet 1 tablet = 10 mg, By Mouth, Daily, label in singaporean daily in bedtime, # 90 tablet, 3 Refills, Maintenance, 09/30/20 11:11:00 EST, [facility], Partial fill upon patient request, 156, cm,09/30/20 10:26:00 EST, Height Start Date: 09/30/20 Status: Orderedcetirizine 10 mg oral tablet 1 tablet = 10 mg, By Mouth, Daily, # 30 tablet, 0 Refills, Maintenance, 04/25/21 13:48:00 EDT, Tablet, [facility]., Partial fill upon patient request if the prescription is for a schedule II opioid drug., 156, cm, 04/25/21 13:01:00 EDT,... Start Date: 04/25/21 Status: Orderedgabapentin 300 mg oral capsule 300 mg, 1, capsule, By Mouth, Daily at bedtime, label in singaporean, # 90 capsule, Refills 1, Tot. Refills 1, Maintenance, 09/12/20 10:24:00 EDT, Route to Pharmacy Electronically, [facility], 156, cm, 09/12/20 9:33:00 EDT, Height Start Date: 09/12/20 Status: OrderedLac-Hydrin 12% lotion 1 application, Topically, 2 times a day, instr singaporean, # 567 Gm, 1 Refills, Maintenance, 01/12/21 16:46:00 EST, Lotion, [facility], Partial fill upon patient request if the prescription is for a schedule II opioid drug., 1 application... Start Date: 01/12/21 Status: OrderedLantus Solostar Pen 100 units/mL subcutaneous solution = 55 units, Subcutaneous Infusion, Daily, daily in am label in singaporean, # 13.5 mL, 11 Refills, Maintenance, 01/30/21 14:01:00 EDT, [facility], 156, cm, 01/12/21 16:08:00 EST, Height Start Date: 01/30/21 Status: Orderedlisinopril 5 mg oral tablet 5 mg, 1, tablet, By Mouth, Daily, label in singaporean, # 90 tablet, Refills 11, Tot. Refills 11, Maintenance, 09/12/20 10:21:00 EDT, Route to Pharmacy Electronically, [facility], 156, cm, 09/12/20 9:33:00 EDT, Height Start Date: 09/12/20 Status: OrderedmetFORMIN 1000 mg oral tablet, extended release 1 tablet = 1,000 mg, By Mouth, 2 times a day, label in singaporean, # 180 tablet, 4 Refills, Maintenance, 03/29/21 9:27:00 EDT, [facility], TO REPLACE 500 mg tablets - please review change with patient, 156, cm, 03/29/21 8:21:00 EDT, Height Start Date: 03/29/21 Stop Date: 06/22/22 Status: Orderedsertraline 100 mg oral tablet 1 tablet = 100 mg, By Mouth, Daily, instr singaporean; start after completing 50 mg tablets, # 30 tablet, 11 Refills, Maintenance, 07/10/21 15:51:00 EDT, Tablet, [facility]., Partial fill upon patient request if the prescription is for a sc... Start Date: 07/10/21 Status: Orderedsertraline 50 mg oral tablet 1 tablet = 50 mg, By Mouth, Daily, instr singaporean, # 14 tablet, 0 Refills, Maintenance, 07/10/21 15:51:00 EDT, Tablet, [facility]., Partial fill upon patient request if the prescription is for a schedule II opioid drug., 156, cm, ... Start Date: 07/10/21 Stop Date: 07/24/21 Status: OrderedTrulicity Pen 1.5 mg/0.5 mL subcutaneous solution 0.5 mL = 1.5 mg, Subcutaneous Injection, Every week, rotate injection sites label in singaporean, # 2 mL, 11 Refills, Maintenance, 09/30/20 10:55:00 EST, Solution, [facility]., Partial fill upon patient request, 156, cm, 09/30/20 10:26:00... 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
--- OUTSIDE RECORDS SUMMARY | 2022-10-14 16:34 | XMS_ITS | Continuity of Care Document ---
:1980 Author Organization [facility] Address [address] [place] [address]- Care Team Providers Name Role Phone Kim Archer DO Primary Care Physician Encounter [facility] Date(s): 10/10/21 - 11/09/21 [facility] [address] [place] [id number]- Encounter Diagnosis Diabetes (Discharge Diagnosis) - 10/10/21 Allergies, Adverse Reactions, Alerts Substance Reaction Severity Status NKA Active Immunizations Given and Recorded Vaccine Date Status Refusal Reason SARS-CoV-2 (COVID-19) mRNA BNT-162b2 vac 04/14/21 Given tetanus/diphtheria/pertussis, acel(Tdap) 10/06/20 Given influenza virus vaccine, inactivated 10/06/20 Given Medications atorvastatin 10 mg oral tablet 1 tablet = 10 mg, By Mouth, Daily, label in georgian daily in bedtime, # 90 tablet, 3 Refills, Maintenance, 09/30/20 11:11:00 EST, [facility], [...] By Mouth, Daily at bedtime, label in georgian, # 90 capsule, Refills 1, Tot. Refills 1, Maintenance, 09/12/20 10:24:00 EDT, Route to Pharmacy Electronically, [facility], 156, cm, 09/12/20 9:33:00 EDT, Height Start Date: 09/12/20 Status: OrderedLantus Solostar Pen 100 units/mL subcutaneous solution = 55 units, Subcutaneous Infusion, Daily, daily in am label in georgian, # 13.5 mL, 11 Refills, Maintenance, 10/10/21 17:10:00 EST, [facility], 156, cm, 07/10/21 14:53:00 EDT, Height Start Date: 10/10/21 Status: Orderedlisinopril 10 mg oral tablet 10 mg, 1, tablet, By Mouth, Daily, # 90 tablet, Refills 3, Tot. Refills 3, Maintenance, 10/23/21 11:15:00 EST, Route to Pharmacy Electronically, [facility], Partial fill upon patient request if the prescription is for a schedule II opi... Start Date: 10/23/21 Status: OrderedmetFORMIN 1000 mg oral tablet, extended release 1 tablet = 1,000 mg, By Mouth, 2 times a day, label in georgian, # 180 tablet, 4 Refills, Maintenance, 03/29/21 9:27:00 EDT, [facility], TO REPLACE 500 mg tablets - please review change with patient, 156, cm, 03/29/21 8:21:00 EDT, Height Start Date: 03/29/21 Stop Date: 06/22/22 Status: Orderedsertraline 100 mg oral tablet 1 tablet = 100 mg, By Mouth, Daily, instr georgian; start after completing 50 mg tablets, # 30 tablet, 11 Refills, Maintenance, 07/10/21 15:51:00 EDT, Tablet, [facility]., Partial fill upon patient request if the prescription is for a sc... Start Date: 07/10/21 Status: OrderedTrulicity Pen 1.5 mg/0.5 mL subcutaneous solution 0.5 mL = 1.5 mg, Subcutaneous Injection, Every Saturday, rotate injection sites label in georgian, #2 mL, 11 Refills, Maintenance, 09/30/20 10:55:00 EST, [facility], [facility], [...] Status Clinical Serv ice Informant Diabetes Discharge 10/10/21 Non-Specified Diagnosis Social History Social History Type Response Smoking Status Never (less than 100 in life time) entered on: 09/12/20 Sex
--- OUTSIDE RECORDS SUMMARY | 2022-10-14 16:34 | XMS_ITS | Continuity of Care Document ---
:1980 Author Organization [facility] Address [address] [place] [address]- Care Team Providers Name Role Phone Kim Archer DO Primary Care Physician En[place] [facility] [place](s): 10/10/21 - 11/09/21 [facility] [address] [place] [id number]- Allergies, Adverse Reactions, Alerts Substance Reaction Severity Status NKA Active Immunizations Given and Recorded Vaccine Date Status Refusal Reason SARS-CoV-2 (COVID-19) mRNA BNT-162b2 vac 04/14/21 Given tetanus/diphtheria/pertussis, acel(Tdap) 10/06/20 Given influenza virus vaccine, inactivated 10/06/20 Given Medications atorvastatin 10 mg oral tablet 1 tablet = 10 mg, By Mouth, Daily, label in maltese daily in bedtime, # 90 tablet, 3 Refills, Maintenance, 09/30/20 11:11:00 EST[facility], 156, [...] By Mouth, Daily at bedtime, label in maltese, # 90 capsule, Refills 1, Tot. Refills 1, Maintenance, 09/12/20 10:24:00 EDT, Route to Pharmacy Electronically, [facility], 156, cm, 09/12/20 9:33:00 EDT, Height Start Date: 09/12/20 Status: OrderedLantus Solostar Pen 100 units/mL subcutaneous solution = 55 units, Subcutaneous Infusion, Daily, daily in am label in maltese, # 13.5 mL, 11 Refills, Maintenance, 10/10/21 17:10:00 EST, [facility], 156, cm, 07/10/21 14:53:00 EDT, Height Start Date: 10/10/21 Status: Orderedlisinopril 10 mg oral tablet 10 mg, 1, tablet, By Mouth, Daily, # 90 tablet, Refills 3, Tot. Refills 3, Maintenance, 10/23/21 11:15:00 EST, Route to Pharmacy Electronically, [facility], Partial fill upon patient request if the prescription is for a schedule II opi... Start Date: 10/23/21 Status: OrderedmetFORMIN 1000 mg oral tablet, extended release 1 tablet = 1,000 mg, By Mouth, 2 times a day, label in maltese, # 180 tablet, 4 Refills, Maintenance, 03/29/21 9:27:00 EDT, [facility], TO REPLACE 500 mg tablets - please review change with patient, 156, cm, 03/29/21 8:21:00 EDT, Height Start Date: 03/29/21 Stop Date: 06/22/22 Status: Orderedsertraline 100 mg oral tablet 1 tablet = 100 mg, By Mouth, Daily, instr maltese; start after completing 50 mg tablets, # 30 tablet, 11 Refills, Maintenance, 07/10/21 15:51:00 EDT, Tablet, [facility], Partial fill upon patient request if the prescription is for a sc... Start Date: 07/10/21 Status: OrderedTrulicity Pen 1.5 mg/0.5 mL subcutaneous solution 0.5 mL = 1.5 mg, Subcutaneous Injection, Every Saturday, rotate injection sites label in maltese, #2 mL, 11 Refills, Maintenance, 09/30/20 10:55:00 EST, Solution, [facility], Partial fill upon patient request, 156, cm, [...]
--- OUTSIDE RECORDS SUMMARY | 2022-10-14 16:34 | XMS_ITS | Continuity of Care Document ---
:1980 Author Organization [facility] Address [address] [place] [address]- Care Team Providers Name Role Phone Edwina PHAM, Natalie Primary Care Physician Encounter [facility] [place] Date(s): 01/24/22 - 02/23/22 [facility] [address] [place] [id number]- Allergies, Adverse Reactions, Alerts No Known Allergies Immunizations Given and Recorded Vaccine Date Status Refusal Reason SARS-CoV-2 (COVID-19) mRNA BNT-162b2 vac 11/29/21 Recorde d SARS-CoV-2 (COVID-19) mRNA BNT-162b2 vac 04/14/21 Given tetanus/diphtheria/pertussis, acel(Tdap) 10/06/20 Given influenza virus vaccine, inactivated 10/06/20 Given Medications atorvastatin 10 mg oral tablet 1 tablet = 10 mg, By Mouth, Daily, label in estonian daily in bedtime, # 90 tablet, 3 Refills, Maintenance, 09/30/20 11:11:00 EST, [facility], 156, [...] By Mouth, Daily at bedtime, label in estonian, # 90 capsule, Refills 1, Tot. Refills 1, Maintenance, 09/12/20 10:24:00 EDT, Route to Pharmacy Electronically, [facility], 156, cm, 09/12/20 9:33:00 EDT, Height Start Date: 09/12/20 Status: OrderedLantus Solostar Pen 100 units/mL subcutaneous solution = 55 units, Subcutaneous Infusion, Daily, daily in am label in estonian, # 13.5 mL, 11 Refills, Maintenance, 12/01/21 12:58:00 EST, [facility], 156, cm, 10/23/21 11:14:00 EST, Height Start Date: 12/01/21 Status: Orderedlidocaine 5% topical cream 1 application, Topically, 3 times a day, PRN Pain , Moderate, # 15 Gm, 0 Refills, Maintenance, 01/05/22 13:02:00 EST, Cream, [facility] Partial fill upon patient request if the prescription is for a schedule II opioid drug., 1 applica... Start Date: 01/05/22 Status: Orderedlisinopril 10 mg oral tablet 10 mg, 1, tablet, By Mouth, Daily, # 90 tablet, Refills 3, Tot. Refills 3, Maintenance, 10/23/21 11:15:00 EST, Route to Pharmacy Electronically, [facility], Partial fill upon patient request if the prescription is for a schedule II opi... Start Date: 10/23/21 Status: Orderedmeloxicam 15 mg oral tablet 1 tablet = 15 mg, By Mouth, Daily, # 14 tablet, 0 Refills, Maintenance, 01/24/22 15:01:00 EST, Tablet, [facility]., Partial fill upon patient request if the prescription is for a schedule II opioid drug., 156, cm, 01/24/22 14:31:00 EST,... Start Date: 01/24/22 Stop Date: 02/07/22 Status: OrderedmetFORMIN 1000 mg oral tablet, extended release 1 tablet = 1,000 mg, By Mouth, 2 times a day, label in estonian, # 180 tablet, 4 Refills, Maintenance, 03/29/21 9:27:00 EDT, [facility] TO [facility] 500 mg tablets - please review change with patient, 156, cm, 03/29/21 8:21:00 EDT, Height Start Date: 03/29/21 Stop Date: 06/22/22 Status: Orderedsertraline 100 mg oral tablet 1 tablet = 100 mg, By Mouth, Daily, instr estonian; start after completing 50 mg tablets, # 30 tablet, 11 Refills, Maintenance, 07/10/21 15:51:00 EDT, Tablet, [facility]., Partial fill upon patient request if the prescription is for a sc... Start Date: 07/10/21 Status: OrderedTrulicity Pen 1.5 mg/0.5 mL subcutaneous solution 0.5 mL = 1.5 mg, Subcutaneous Injection, Every Saturday, rotate injection sites label in estonian, #2 mL, 11 Refills, Maintenance, 09/30/20 10:55:00 EST, Solution, [facility]., Partial fill upon patient request, 156, cm, [...]
--- OUTSIDE RECORDS SUMMARY | 2022-10-14 16:34 | XMS_ITS | Continuity of Care Document ---
:1980 Author Organization [facility] Address [address] [place] [address]- Care Team Providers Name Role Phone Edwina PHAM, Natalie Primary Care Physician Encounter [facility] [place] Date(s): 06/11/22 - 08/19/22 [facility] [address] [place] [id number]- Attending Physician: Not on Staff, Attending MD Allergies, Adverse Reactions, Alerts No Known Allergies Immunizations Given and Recorded Vaccine Date Status Refusal Reason SARS-CoV-2 (COVID-19) mRNA BNT-162b2 vac 11/29/21 Recorde d SARS-CoV-2 (COVID-19) mRNA BNT-162b2 vac 04/14/21 Given tetanus/diphtheria/pertussis, acel(Tdap) 10/06/20 Given influenza virus vaccine, inactivated 10/06/20 Given Medications BD SHORT PEN NDL 52Sm1ha 31GX5/16 NEDL BD SHORT PEN NDL 88Gu0wh 31GX5/16 NEDL, See Instructions, # 120 Unknown, 5 Refills, Maintenance, [facility], 08/02/22 15:31:00 EDT, 156, cm, 07/19/22 14:26:00 EDT, Height Start Date: 08/02/22 Status: OrderedFLUoxetine 20 mg oral capsule Refills 0, Maintenance, 07/20/22 8:33:00 EDT, Partial fill upon patient request if the prescription is for a schedule II opioid drug. Start Date: 07/20/22 Status: OrderedFreestyle Lite Test Strips See Instructions, # 100 each, Refills 11, Tot. Refills 11, Maintenance, take bs TID for insulin dependent Type 2 Diabetes Mellitus, 07/20/22 8:25:00 EDT, Supply, 156, cm, 07/19/22 14:26:00 EDT, Height Start Date: 07/20/22 Stop Date: 07/04/25 Status: OrderedLantus Solostar Pen 100 units/mL subcutaneous solution = 55 units, Subcutaneous Infusion, Daily, daily in am label in polish, # 15 mL, 11 Refills, Maintenance, 03/22/22 15:57:00 EDT, [facility], 156, cm, 03/22/22 15:05:00 EDT, Height Start Date: 03/22/22 Status: Orderedlisinopril 10 mg oral tablet 10 mg, 1, tablet, By Mouth, Daily, # 90 tablet, Refills 3, Tot. Refills 3, Maintenance, 10/23/21 11:15:00 EST, Route to Pharmacy Electronically, [facility], Partial fill upon patient request if the prescription is for a schedule II opi... Start Date: 10/23/21 Status: OrderedMetFORMIN (Eqv-Glucophage XR) 500 mg oral tablet, extended release See Instructions, [place] 2 TABLETA P[facility] [place], # 120 tablet, 11 Refills, [facility], 156, cm, 03/22/22 15:05:00 EDT, Height Start Date: 07/10/22 Status: OrderedPrenatal Multivitamins with Folic Acid 0.8 mg oral tablet 0 Refills, Maintenance, 07/20/22 8:32:00 EDT, Partial fill upon patient request if the prescription is for a schedule II opioid drug. Start Date: 07/20/22 Status: OrderedtraZODone 100 mg oral tablet Refills 0, Maintenance, 07/20/22 8:33:00 EDT, Partial fill upon patient request if the prescription is for a schedule II opioid drug. Start Date: 07/20/22 Status: Ordered Problem List Condition Confirmation Course Effective Dates Status Health I nformant Status Atopic dermatitis Confirmed Active Overweight (BMI Confirmed Active 25.0-29.9) Essential Confirmed Active hypertension Hyperlipidemia Confirmed Active Insulin dependent Confirmed Active type 2 diabetes mellitus Depression with Confirmed Active anxiety Obese class I Confirmed Active Diabetic retinopathy Confirmed Active Social History Social History Type Response Smoking Status Never (less than 100 in life time) entered on: 09/12/20 Sex Patient Care team information PersonnelName: Natalie Bland MD Address: Address: [address] [place] [address] [place], [place] [address]
--- OUTSIDE RECORDS SUMMARY | 2022-10-14 16:34 | XMS_ITS | Continuity of Care Document ---
:1980 Author Organization [facility] Address [address] [place] [address]- Care Team Providers Name Role Phone Kim Archer DO Primary Care Physician [facility]counter [facility] Date(s): 10/23/21 - 11/22/21 [facility] [address] [place] [id number] Allergies, Adverse Reactions, Alerts Substance Reaction Severity Status NKA Active Immunizations Given and Recorded Vaccine Date Status Refusal Reason SARS-CoV-2 (COVID-19) mRNA BNT-162b2 vac 04/14/21 Given tetanus/diphtheria/pertussis, acel(Tdap) 10/06/20 Given influenza virus vaccine, inactivated 10/06/20 Given Medications atorvastatin 10 mg oral tablet 1 tablet = 10 mg, By Mouth, Daily, label in namibian daily in bedtime, # 90 tablet, 3 Refills, Maintenance, 09/30/20 11:11:00 EST, [facility] fill upon patient request, 156, [...] By Mouth, Daily at bedtime, label in namibian, # 90 capsule, Refills 1, Tot. Refills 1, Maintenance, 09/12/20 10:24:00 EDT, Route to Pharmacy Electronically, [facility], 156, cm, 09/12/20 9:33:00 EDT, Height Start Date: 09/12/20 Status: OrderedLantus Solostar Pen 100 units/mL subcutaneous solution = 55 units, Subcutaneous Infusion, Daily, daily in am label in namibian, # 13.5 mL, 11 Refills, Maintenance, 10/10/21 17:10:00 EST, [facility], 156, cm, 07/10/21 14:53:00 EDT, Height Start Date: 10/10/21 Status: Orderedlisinopril 10 mg oral tablet 10 mg, 1, tablet, By Mouth, Daily, # 90 tablet, Refills 3, Tot. Refills 3, Maintenance, 10/23/21 11:15:00 EST, Route to Pharmacy Electronically, [facility], Partial fill upon patient request if the prescription is for a schedule II opi... Start Date: 10/23/21 Status: OrderedmetFORMIN 1000 mg oral tablet, extended release 1 tablet = 1,000 mg, By Mouth, 2 times a day, label in namibian, # 180 tablet, 4 Refills, Maintenance, 03/29/21 9:27:00 EDT, [facility], TO REPLACE 500 mg tablets - please review change with patient, 156, cm, 03/29/21 8:21:00 EDT, Height Start Date: 03/29/21 Stop Date: 06/22/22 Status: Orderedsertraline 100 mg oral tablet 1 tablet = 100 mg, By Mouth, Daily, instr namibian; start after completing 50 mg tablets, # 30 tablet, 11 Refills, Maintenance, 07/10/21 15:51:00 EDT, Tablet, [facility], Partial fill upon patient request if the prescription is for a sc... Start Date: 07/10/21 Status: OrderedTrulicity Pen 1.5 mg/0.5 mL subcutaneous solution 0.5 mL = 1.5 mg, Subcutaneous Injection, Every Saturday, rotate injection sites label in namibian, #2 mL, 11 Refills, Maintenance, 09/30/20 10:55:00 EST, Solution, [facility]., Partial fill upon patient request, 156, cm, [...]
--- OUTSIDE RECORDS SUMMARY | 2022-10-14 16:34 | XMS_ITS | Continuity of Care Document ---
:1980 Author Organization [facility] Address [address] [place] [address]- Care Team Providers Name Role Phone Natalie Bland MD Primary Care Physician [place] [facility] [place] 01/05/22 [facility] [address] [place] [address]- Attending Physician: [place] MD Admitting Physician: [place] MD Allergies, Adverse Reactions, Alerts No Known Allergies Immunizations Given and Recorded Vaccine Date Status Refusal Reason SARS-CoV-2 (COVID-19) mRNA BNT-162b2 vac 11/29/21 Recorde d SARS-CoV-2 (COVID-19) mRNA BNT-162b2 vac 04/14/21 Given tetanus/diphtheria/pertussis, acel(Tdap) 10/06/20 Given influenza virus vaccine, inactivated 10/06/20 Given Medications atorvastatin 10 mg oral tablet 1 tablet = 10 mg, By Mouth, Daily, label in haitian daily in bedtime, # 90 tablet, 3 Refills, Maintenance, 09/30/20 11:11:00 EST, [facility], [facility] fill upon patient [...] By Mouth, Daily at bedtime, label in haitian, # 90 capsule, Refills 1, Tot. Refills 1, Maintenance, 09/12/20 10:24:00 EDT, Route to Pharmacy Electronically, [facility], 156, cm, 09/12/20 9:33:00 EDT, Height Start Date: 09/12/20 Status: OrderedLantus Solostar Pen 100 units/mL subcutaneous solution = 55 units, Subcutaneous Infusion, Daily, daily in am label in haitian, # 13.5 mL, 11 Refills, Maintenance, 12/01/21 12:58:00 EST, [facility], 156, cm, 10/23/21 11:14:00 EST, Height Start Date: 12/01/21 Status: Orderedlidocaine 5% topical cream 1 application, Topically, 3 times a day, PRN Pain , Moderate, # 15 Gm, 0 Refills, Maintenance, 01/05/22 13:02:00 EST, Cream, [facility], Partial fill upon patient request if the prescription is for a schedule II opioid drug., 1 applica... Start Date: 01/05/22 Status: Orderedlisinopril 10 mg oral tablet 10 mg, 1, tablet, By Mouth, Daily, # 90 tablet, Refills 3, Tot. Refills 3, Maintenance, 10/23/21 11:15:00 EST, Route to Pharmacy Electronically, [facility], Partial fill upon patient request if the prescription is for a schedule II opi... Start Date: 10/23/21 Status: OrderedmetFORMIN 1000 mg oral tablet, extended release 1 tablet = 1,000 mg, By Mouth, 2 times a day, label in haitian, # 180 tablet, 4 Refills, Maintenance, 03/29/21 9:27:00 EDT, [facility], TO REPLACE 500 mg tablets - please review change with patient, 156, cm, 03/29/21 8:21:00 EDT, Height Start Date: 03/29/21 Stop Date: 06/22/22 Status: Orderedsertraline 100 mg oral tablet 1 tablet = 100 mg, By Mouth, Daily, instr haitian; start after completing 50 mg tablets, # 30 tablet, 11 Refills, Maintenance, 07/10/21 15:51:00 EDT, Tablet, [facility]., Partial fill upon patient request if the prescription is for a sc... Start Date: 07/10/21 Status: OrderedTrulicity Pen 1.5 mg/0.5 mL subcutaneous solution 0.5 mL = 1.5 mg, Subcutaneous Injection, Every Saturday, rotate injection sites label in haitian, #2 mL, 11 Refills, Maintenance, 09/30/20 10:55:00 EST, Solution, [facility]., Partial fill upon patient request, 156, cm, [...]
--- OUTSIDE RECORDS SUMMARY | 2022-10-14 16:34 | XMS_ITS | Continuity of Care Document ---
:1980 Author Organization [facility] Address [address] [place] [phone]- Care Team Providers Name Role Phone Kim Archer DO Primary Care Physician [facility]counter [facility] Date(s): 12/30/20 - 01/29/[address] [id number] Allergies, Adverse Reactions, Alerts Substance Reaction Severity Status NKA Active Immunizations Given and Recorded Vaccine Date Status Refusal Reason tetanus/diphtheria/pertussis, acel(Tdap) 10/06/20 Given influenza virus vaccine, inactivated 10/06/20 Given Medications atorvastatin 10 mg oral tablet 1 tablet = 10 mg, By Mouth, Daily, label in east timorese daily in bedtime, # 90 tablet, 3 Refills, Maintenance, 09/30/20 11:11:00 EST, [facility] upon patient request, 156, cm,09/30/20 10:26:00 EST, Height Start Date: 09/30/20 Status: OrderedFreestyle Lite Lancets See Instructions, # [...] By Mouth, Daily at bedtime, label in east timorese, # 90 capsule, Refills 1, Tot. Refills 1, Maintenance, 09/12/20 10:24:00 EDT, Route to Pharmacy Electronically, [facility], 156, cm, 09/12/20 9:33:00 EDT, Height Start Date: 09/12/20 Status: OrderedLac-Hydrin 12% lotion 1 application, Topically, 2 times a day, instr east timorese, # 567 Gm, 1 Refills, Maintenance, 01/12/21 16:46:00 EST, Lotion, [facility], Partial fill upon patient request if the prescription is for a schedule II opioid drug., 1 application... Start Date: 01/12/21 Status: OrderedLantus Solostar Pen 100 units/mL subcutaneous solution = 35 units, Subcutaneous Infusion, Daily, before a meal label in east timorese, # 12 mL, 11 Refills, Maintenance, 09/12/20 10:20:00 EDT, [facility], 156, cm, 09/12/20 9:33:00 EDT, Height Start Date: 09/12/20 Status: Orderedlisinopril 5 mg oral tablet 5 mg, 1, tablet, By Mouth, Daily, label in east timorese, # 90 tablet, Refills 11, Tot. Refills 11, Maintenance, 09/12/20 10:21:00 EDT, Route to Pharmacy Electronically, [facility], 156, cm, 09/12/20 9:33:00 EDT, Height Start Date: 09/12/20 Status: OrderedmetFORMIN 1000 mg oral tablet, extended release 1 tablet = 1,000 mg, By Mouth, Daily, label in east timorese with evening meal, # 90 tablet, 3 Refills, Maintenance, 11/21/20 9:54:00 EST, [facility] Partial fill upon patient request if theprescription is for a schedule II opioid drug.,... Start Date: 11/21/20 Status: Orderedsertraline 25 mg oral tablet 1 tablet = 25 mg, By Mouth, Daily, label in east timorese, # 30 tablet, 11 Refills, Maintenance, 12/09/20 9:47:00 EST, Tablet, [facility] Partial fill upon patient request if the prescription is for a schedule II opioid drug., 156, cm, 09/18... Start Date: 12/09/20 Status: Orderedtriamcinolone 0.025% topical ointment 1 application, Topically, 2 times a day, for 14 days, instr east timorese, # 60 Gm, 1 Refills, Acute 02/09/21 16:46:00 EDT, 01/12/21 16:46:00 EST, Ointment, [facility] Partial fill upon patient request if the prescription is for a schedule... Start Date: 01/12/21 Stop Date: 02/09/21 Status: OrderedTrulicity Pen 1.5 mg/0.5 mL subcutaneous solution 0.5 mL = 1.5 mg, Subcutaneous Injection, Every week, rotate injection sites label in east timorese, # 2 mL, 11 Refills, Maintenance, 09/30/20 10:55:00 EST, Solution, [facility] Partial fill upon patient request, 156, cm, 09/30/20 10:26:00... Start Date: 09/30/20 Status: Ordered Problem List Condition Effective Dates Status Health Status Informant Atopic dermatitis(Confirmed) Active Diabetes(Confirmed) Active Hyperlipidemia(Confirmed) Active Depression with anxiety(Confirmed) Active Obesity (BMI 30.0-34.9)(Confirmed) Active Diabetic retinopathy(Confirmed) Active Social History Social History Type Response Smoking Status Never (less than 100 in life time) entered on: 09/12/20 Sex
--- OUTSIDE RECORDS SUMMARY | 2022-10-14 16:34 | XMS_ITS | Continuity of Care Document ---
:1980 Author Organization [facility] Address [address] [place] [phone]- Care Team Providers Name Role Phone Kim Archer DO Primary Care Physician [facility] Date[facility]s): 05/05/21 - 06/04/21 [facility] [address] [place] [id number] Attending Physician: Admarlette, Shavon Admitting Physician: AdmtrShavon Referring Physician: Admtr, Ar8 Allergies, Adverse Reactions, Alerts Substance Reaction Severity Status NKA Active Immunizations Given and Recorded Vaccine Date Status Refusal Reason SARS-CoV-2 (COVID-19) mRNA BNT-162b2 vac 04/14/21 Given tetanus/diphtheria/pertussis, acel(Tdap) 10/06/20 Given influenza virus vaccine, inactivated 10/06/20 Given Medications atorvastatin 10 mg oral tablet 1 tablet = 10 mg, By Mouth, Daily, label in english daily in bedtime, # 90 tablet, 3 Refills, Maintenance, 09/30/20 11:11:00 EST, [facility], [...] 0 Refills, Maintenance, 04/25/21 13:48:00 EDT, Tablet, [facility], Partial fill upon patient request if [...] By Mouth, Daily at bedtime, label in english, # 90 capsule, Refills 1, Tot. Refills 1, Maintenance, 09/12/20 10:24:00 EDT, Route to Pharmacy Electronically, [facility] [place] 156, cm, 09/12/20 9:33:00 EDT, Height Start Date: 09/12/20 Status: OrderedLac-Hydrin 12% lotion 1 application, Topically, 2 times a day, instr english, # 567 Gm, 1 Refills, Maintenance, 01/12/21 16:46:00 EST, Lotion, [facility], Partial fill upon patient request if the prescription is for a schedule II opioid drug., 1 application... Start Date: 01/12/21 Status: OrderedLantus Solostar Pen 100 units/mL subcutaneous solution = 55 units, Subcutaneous Infusion, Daily, daily in am label in english, # 13.5 mL, 11 Refills, Maintenance, 01/30/21 14:01:00 EDT, [facility], 156, cm, 01/12/21 16:08:00 EST, Height Start Date: 01/30/21 Status: Orderedlisinopril 5 mg oral tablet 5 mg, 1, tablet, By Mouth, Daily, label in english, # 90 tablet, Refills 11, Tot. Refills 11, Maintenance, 09/12/20 10:21:00 EDT, Route to Pharmacy Electronically, [facility], 156, cm, 09/12/20 9:33:00 EDT, Height Start Date: 09/12/20 Status: OrderedmetFORMIN 1000 mg oral tablet, extended release 1 tablet = 1,000 mg, By Mouth, 2 times a day, label in english, # 180 tablet, 4 Refills, Maintenance, 03/29/21 9:27:00 EDT, [facility], TO REPLACE 500 mg tablets - please review change with patient, 156, cm, 03/29/21 8:21:00 EDT, Height Start Date: 03/29/21 Stop Date: 06/22/22 Status: Orderedpermethrin 5% topical cream 1 application, Topically, Once, Apply to skin from head to soles. Leave on 8-10 hours then wash off,# 60 mL, 0 Refills, Soft Stop, 05/04/21 14:40:00 EDT, Lotion, [facility], Instructions in english;, 1 application Topically Once,Instr... Start Date: 05/04/21 Status: Orderedsertraline 25 mg oral tablet 1 tablet = 25 mg, By Mouth, Daily, label in english, # 30 tablet, 11 Refills, Maintenance, 12/09/20 9:47:00 EST, Tablet, [facility], Partial fill upon patient request if the prescription is for a schedule II opioid drug., 156, kong, 09/18... Start Date: 12/09/20 Status: OrderedTrulicity Pen 1.5 mg/0.5 mL subcutaneous solution 0.5 mL = 1.5 mg, Subcutaneous Injection, Every week, rotate injection sites label in english, # 2 mL, 11 Refills, Maintenance, 09/30/20 10:55:00 EST, Solution, [facility], Partial fill upon patient request, 156, [...]
--- OUTSIDE RECORDS SUMMARY | 2022-10-14 16:34 | XMS_ITS | Continuity of Care Document ---
:1980 Author Organization [facility] Address [address] [place] [address]- Care Team Providers Name Role Phone Kim Archer DO Primary Care Physician Encounter [facility] Date(s): 01/12/21 - 02/11/21 [facility] [address] [place] [id number] Allergies, Adverse Reactions, Alerts Substance Reaction Severity Status NKA Active Immunizations Given and Recorded Vaccine Date Status Refusal Reason tetanus/diphtheria/pertussis, acel(Tdap) 10/06/20 Given influenza virus vaccine, inactivated 10/06/20 Given Medications atorvastatin 10 mg oral tablet 1 tablet = 10 mg, By Mouth, Daily, label in cymro daily in bedtime, # 90 tablet, 3 Refills, Maintenance, 09/30/20 11:11:00 EST, [facility], 156, [...] By Mouth, Daily at bedtime, label in cymro, # 90 capsule, Refills 1, Tot. Refills 1, Maintenance, 09/12/20 10:24:00 EDT, Route to Pharmacy Electronically, [facility], 156, cm, 09/12/20 9:33:00 EDT, Height Start Date: 09/12/20 Status: OrderedLac-Hydrin 12% lotion 1 application, Topically, 2 times a day, instr cymro, # 567 Gm, 1 Refills, Maintenance, 01/12/21 16:46:00 EST, Lotion, [facility], Partial fill upon patient request if the prescription is for a schedule II opioid drug., 1 application... Start Date: 01/12/21 Status: OrderedLantus Solostar Pen 100 units/mL subcutaneous solution = 45 units, Subcutaneous Infusion, Daily, before a meal label in cymro, # 13.5 mL, 11 Refills, Maintenance, 01/30/21 14:01:00 EDT, [facility], 156, cm, 01/12/21 16:08:00 EST, Height Start Date: 01/30/21 Status: Orderedlisinopril 5 mg oral tablet 5 mg, 1, tablet, By Mouth, Daily, label in cymro, # 90 tablet, Refills 11, Tot. Refills 11, Maintenance, 09/12/20 10:21:00 EDT, Route to Pharmacy Electronically, [facility], 156, cm, 09/12/20 9:33:00 EDT, Height Start Date: 09/12/20 Status: OrderedmetFORMIN 1000 mg oral tablet, extended release 1 tablet = 1,000 mg, By Mouth, Daily, label in cymro with evening meal, # 90 tablet, 3 Refills, Maintenance, 11/21/20 9:54:00 EST, [facility] Partial fill upon patient request if theprescription is for a schedule II opioid drug.,... Start Date: 11/21/20 Status: Orderedsertraline 25 mg oral tablet 1 tablet = 25 mg, By Mouth, Daily, label in cymro, # 30 tablet, 11 Refills, Maintenance, 12/09/20 9:47:00 EST, Tablet, [facility] Partial fill upon patient request if the prescription is for a schedule II opioid drug., 156, cm, 09/18... Start Date: 12/09/20 Status: OrderedTrulicity Pen 1.5 mg/0.5 mL subcutaneous solution 0.5 mL = 1.5 mg, Subcutaneous Injection, Every week, rotate injection sites label in cymro, # 2 mL, 11 Refills, Maintenance, 09/30/20 10:55:00 EST, Solution, [facility] Partial fill upon patient request, 156, [...]
--- OUTSIDE RECORDS SUMMARY | 2022-10-14 16:34 | XMS_ITS | Continuity of Care Document ---
:1980 Author Organization [facility] Address [address] [place] [address]- Care Team Providers Name Role Phone Kim Archer DO Primary Care Physician Encounter [facility] Date(s): 04/13/21 - 06/04/21 [facility] [address] [place] [id number] Attending Physician: Campbell Russell MD Admitting Physician: Campbell Russell MD Allergies, Adverse Reactions, Alerts Substance Reaction Severity Status NKA Active Immunizations Given and Recorded Vaccine Date Status Refusal Reason SARS-CoV-2 (COVID-19) mRNA BNT-162b2 vac 04/14/21 Given tetanus/diphtheria/pertussis, acel(Tdap) 10/06/20 Given influenza virus vaccine, inactivated 10/06/20 Given Medications atorvastatin 10 mg oral tablet 1 tablet = 10 mg, By Mouth, Daily, label in [place] daily in bedtime, # 90 tablet, 3 Refills, Maintenance, 09/30/20 11:11:00 EST, [facility], 156, [...] 0 Refills, Maintenance, 04/25/21 13:48:00 EDT, Tablet, [facility] Partial fill upon patient request if the [...] By Mouth, Daily at bedtime, label in [place], # 90 capsule, Refills 1, Tot. Refills 1, Maintenance, 09/12/20 10:24:00 EDT, Route to Pharmacy Electronically, [facility] 156, cm, 09/12/20 9:33:00 EDT, Height Start Date: 09/12/20 Status: OrderedLac-Hydrin 12% lotion 1 application, Topically, 2 times a day, instr [place], # 567 Gm, 1 Refills, Maintenance, 01/12/21 16:46:00 EST, Lotion, [facility], Partial fill upon patient request if the prescription is for a schedule II opioid drug., 1 application... Start Date: 01/12/21 Status: OrderedLantus Solostar Pen 100 units/mL subcutaneous solution = 55 units, Subcutaneous Infusion, Daily, daily in am label in [place], # 13.5 mL, 11 Refills, Maintenance, 01/30/21 14:01:00 EDT, [facility], 156, cm, 01/12/21 16:08:00 EST, Height Start Date: 01/30/21 Status: Orderedlisinopril 5 mg oral tablet 5 mg, 1, tablet, By Mouth, Daily, label in [place], # 90 tablet, Refills 11, Tot. Refills 11, Maintenance, 09/12/20 10:21:00 EDT, Route to Pharmacy Electronically, [facility], 156, cm, 09/12/20 9:33:00 EDT, Height Start Date: 09/12/20 Status: OrderedmetFORMIN 1000 mg oral tablet, extended release 1 tablet = 1,000 mg, By Mouth, 2 times a day, label in [place], # 180 tablet, 4 Refills, Maintenance, 03/29/21 9:27:00 EDT, [facility], TO REPLACE 500 mg tablets - please review change with patient, 156, cm, 03/29/21 8:21:00 EDT, Height Start Date: 03/29/21 Stop Date: 06/22/22 Status: Orderedpermethrin 5% topical cream 1 application, Topically, Once, Apply to skin from head to soles. Leave on 8-10 hours then wash off,# 60 mL, 0 Refills, Soft Stop, 05/04/21 14:40:00 EDT, Lotion, [facility], Instructions in [place];, 1 application Topically Once,Instr... Start Date: 05/04/21 Status: Orderedsertraline 25 mg oral tablet 1 tablet = 25 mg, By Mouth, Daily, label in [place], # 30 tablet, 11 Refills, Maintenance, 12/09/20 9:47:00 EST, Tablet, [facility] Partial fill upon patient request if the prescription is for a schedule II opioid drug., 156, kong, 09/18... Start Date: 12/09/20 Status: OrderedTrulicity Pen 1.5 mg/0.5 mL subcutaneous solution 0.5 mL = 1.5 mg, Subcutaneous Injection, Every week, rotate injection sites label in [place], # 2 mL, 11 Refills, Maintenance, 09/30/20 10:55:00 EST, Solution, [facility] Partial fill upon patient request, 156, cm, [...]
--- OUTSIDE RECORDS SUMMARY | 2022-10-14 16:34 | XMS_ITS | Continuity of Care Document ---
:1980 Author Organization [facility] Address [address] [place] [id number]- Care Team Providers Name Role Phone Kim Archer DO Primary Care Physician En[place] [facility] [place] Date(s): 10/10/21 - 11/16/21 [facility] [address] [place] [id number] Attending Physician: Hellen Orellana MD Admitting Physician: Hellen Orellana MD Referring Physician: Kim Archer DO Allergies, Adverse Reactions, Alerts Substance Reaction Severity Status NKA Active Immunizations Given and Recorded Vaccine Date Status Refusal Reason SARS-CoV-2 (COVID-19) mRNA BNT-162b2 vac 04/14/21 Given tetanus/diphtheria/pertussis, acel(Tdap) 10/06/20 Given influenza virus vaccine, inactivated 10/06/20 Given Medications atorvastatin 10 mg oral tablet 1 tablet = 10 mg, By Mouth, Daily, label in latvian daily in bedtime, # 90 tablet, 3 Refills, Maintenance, 09/30/20 11:11:00 EST, [facility] fill upon patient request, 156, [...] By Mouth, Daily at bedtime, label in latvian, # 90 capsule, Refills 1, Tot. Refills 1, Maintenance, 09/12/20 10:24:00 EDT, Route to Pharmacy Electronically, [facility], 156, cm, 09/12/20 9:33:00 EDT, Height Start Date: 09/12/20 Status: OrderedLantus Solostar Pen 100 units/mL subcutaneous solution = 55 units, Subcutaneous Infusion, Daily, daily in am label in latvian, # 13.5 mL, 11 Refills, Maintenance, 10/10/21 17:10:00 EST, [facility], 156, cm, 07/10/21 14:53:00 EDT, Height Start Date: 10/10/21 Status: Orderedlisinopril 10 mg oral tablet 10 mg, 1, tablet, By Mouth, Daily, # 90 tablet, Refills 3, Tot. Refills 3, Maintenance, 10/23/21 11:15:00 EST, Route to Pharmacy Electronically, [facility], Partial fill upon patient request if the prescription is for a schedule II opi... Start Date: 10/23/21 Status: OrderedmetFORMIN 1000 mg oral tablet, extended release 1 tablet = 1,000 mg, By Mouth, 2 times a day, label in latvian, # 180 tablet, 4 Refills, Maintenance, 03/29/21 9:27:00 EDT, [facility], TO REPLACE 500 mg tablets - please review change with patient, 156, cm, 03/29/21 8:21:00 EDT, Height Start Date: 03/29/21 Stop Date: 06/22/22 Status: Orderedsertraline 100 mg oral tablet 1 tablet = 100 mg, By Mouth, Daily, instr latvian; start after completing 50 mg tablets, # 30 tablet, 11 Refills, Maintenance, 07/10/21 15:51:00 EDT, Tablet, [facility], Partial fill upon patient request if the prescription is for a sc... Start Date: 07/10/21 Status: OrderedTrulicity Pen 1.5 mg/0.5 mL subcutaneous solution 0.5 mL = 1.5 mg, Subcutaneous Injection, Every Saturday, rotate injection sites label in latvian, #2 mL, 11 Refills, Maintenance, 09/30/20 10:55:00 EST, Solution, [facility], [facility] fill upon patient request, 156, [...]
--- OUTSIDE RECORDS SUMMARY | 2022-10-14 16:34 | XMS_ITS | Continuity of Care Document ---
:1980 Author Organization [facility] Address [address] [place] [address]- Care Team Providers Name Role Phone Kim Archer DO Primary Care Physician [place] [facility] [place] Date(s): 10/10/21 - 11/09/21 [facility] [address] [place] [id number]- Encounter Diagnosis Diabetes (Discharge Diagnosis) - 10/10/21 Allergies, Adverse Reactions, Alerts Substance Reaction Severity Status NKA Active Immunizations Given and Recorded Vaccine Date Status Refusal Reason SARS-CoV-2 (COVID-19) mRNA BNT-162b2 vac 04/14/21 Given tetanus/diphtheria/pertussis, acel(Tdap) 10/06/20 Given influenza virus vaccine, inactivated 10/06/20 Given Medications atorvastatin 10 mg oral tablet 1 tablet = 10 mg, By Mouth, Daily, label in serbian daily in bedtime, # 90 tablet, 3 Refills, Maintenance, 09/30/20 11:11:00 EST, [facility], [facility] fill upon patient request, [...] By Mouth, Daily at bedtime, label in serbian, # 90 capsule, Refills 1, Tot. Refills 1, Maintenance, 09/12/20 10:24:00 EDT, Route to Pharmacy Electronically, [facility], 156, cm, 09/12/20 9:33:00 EDT, Height Start Date: 09/12/20 Status: OrderedLantus Solostar Pen 100 units/mL subcutaneous solution = 55 units, Subcutaneous Infusion, Daily, daily in am label in serbian, # 13.5 mL, 11 Refills, Maintenance, 10/10/21 17:10:00 EST, [facility], 156, cm, 07/10/21 14:53:00 EDT, Height Start Date: 10/10/21 Status: Orderedlisinopril 10 mg oral tablet 10 mg, 1, tablet, By Mouth, Daily, # 90 tablet, Refills 3, Tot. Refills 3, Maintenance, 10/23/21 11:15:00 EST, Route to Pharmacy Electronically, [facility], Partial fill upon patient request if the prescription is for a schedule II opi... Start Date: 10/23/21 Status: OrderedmetFORMIN 1000 mg oral tablet, extended release 1 tablet = 1,000 mg, By Mouth, 2 times a day, label in serbian, # 180 tablet, 4 Refills, Maintenance, 03/29/21 9:27:00 EDT, [facility], TO REPLACE 500 mg tablets - please review change with patient, 156, cm, 03/29/21 8:21:00 EDT, Height Start Date: 03/29/21 Stop Date: 06/22/22 Status: Orderedsertraline 100 mg oral tablet 1 tablet = 100 mg, By Mouth, Daily, instr serbian; start after completing 50 mg tablets, # 30 tablet, 11 Refills, Maintenance, 07/10/21 15:51:00 EDT, Tablet, [facility] Partial fill upon patient request if the prescription is for a sc... Start Date: 07/10/21 Status: OrderedTrulicity Pen 1.5 mg/0.5 mL subcutaneous solution 0.5 mL = 1.5 mg, Subcutaneous Injection, Every Saturday, rotate injection sites label in serbian, #2 mL, 11 Refills, Maintenance, 09/30/20 10:55:00 EST, [facility], [facility] upon [facility], [...]
--- OUTSIDE RECORDS SUMMARY | 2022-10-14 16:34 | XMS_ITS | Continuity of Care Document ---
:1980 Author Organization [facility] Address [address] [place] [address], [address] [place] [phone]- Care Team Providers Name Role Phone Kim Archer DO Primary Care Physician [place] [facility] [place] - 08/24/21 [facility] [address] [place] [address], [address] [place] [id number] Attending Physician: Shavon Rodas Admitting Physician: Shavon Rodas Referring Physician: AdmtrShavon Allergies, Adverse Reactions, Alerts Substance Reaction Severity Status NKA Active Immunizations Given and Recorded Vaccine Date Status Refusal Reason SARS-CoV-2 (COVID-19) mRNA BNT-162b2 vac 04/14/21 Given tetanus/diphtheria/pertussis, acel(Tdap) 10/06/20 Given influenza virus vaccine, inactivated 10/06/20 Given Medications atorvastatin 10 mg oral tablet 1 tablet = 10 mg, By Mouth, Daily, label in guamanian daily in bedtime, # 90 tablet, 3 Refills, Maintenance, 09/30/20 11:11:00 EST, [facility] fill upon patient request, 156, cm,09/30/20 10:26:00 EST, Height Start Date: 09/30/20 Status: Orderedcetirizine 10 mg oral tablet 1 tablet = 10 mg, By Mouth, Daily, # 30 tablet, 0 Refills, Maintenance, 04/25/21 13:48:00 EDT, Tablet, [facility] Partial fill upon patient request if the prescription is for a schedule II opioid drug., 156, cm, 04/25/21 13:01:00 EDT,... Start Date: 04/25/21 Status: Orderedgabapentin 300 mg oral capsule 300 mg, 1, capsule, By Mouth, Daily at bedtime, label in guamanian, # 90 capsule, Refills 1, Tot. Refills 1, Maintenance, 09/12/20 10:24:00 EDT, Route to Pharmacy Electronically, [facility], 156, cm, 09/12/20 9:33:00 EDT, Height Start Date: 09/12/20 Status: OrderedLac-Hydrin 12% lotion 1 application, Topically, 2 times a day, instr guamanian, # 567 Gm, 1 Refills, Maintenance, 01/12/21 16:46:00 EST, Lotion, [facility], Partial fill upon patient request if the prescription is for a schedule II opioid drug., 1 application... Start Date: 01/12/21 Status: OrderedLantus Solostar Pen 100 units/mL subcutaneous solution = 55 units, Subcutaneous Infusion, Daily, daily in am label in guamanian, # 13.5 mL, 11 Refills, Maintenance, 01/30/21 14:01:00 EDT, [facility], 156, cm, 01/12/21 16:08:00 EST, Height Start Date: 01/30/21 Status: Orderedlisinopril 5 mg oral tablet 5 mg, 1, tablet, By Mouth, Daily, label in guamanian, # 90 tablet, Refills 11, Tot. Refills 11, Maintenance, 09/12/20 10:21:00 EDT, Route to Pharmacy Electronically, [facility], 156, cm, 09/12/20 9:33:00 EDT, Height Start Date: 09/12/20 Status: OrderedmetFORMIN 1000 mg oral tablet, extended release 1 tablet = 1,000 mg, By Mouth, 2 times a day, label in guamanian, # 180 tablet, 4 Refills, Maintenance, 03/29/21 9:27:00 EDT, [facility], TO REPLACE 500 mg tablets - please review change with patient, 156, cm, 03/29/21 8:21:00 EDT, Height Start Date: 03/29/21 Stop Date: 06/22/22 Status: Orderedsertraline 100 mg oral tablet 1 tablet = 100 mg, By Mouth, Daily, instr guamanian; start after completing 50 mg tablets, # 30 tablet, 11 Refills, Maintenance, 07/10/21 15:51:00 EDT, Tablet, [facility] Partial fill upon patient request if the prescription is for a sc... Start Date: 07/10/21 Status: Orderedsertraline 50 mg oral tablet 1 tablet = 50 mg, By Mouth, Daily, instr guamanian, # 14 tablet, 0 Refills, Maintenance, 07/10/21 15:51:00 EDT, Tablet, [facility]., Partial fill upon patient request if the prescription is for a schedule II opioid drug., 156, cm, ... Start Date: 07/10/21 Stop Date: 07/24/21 Status: OrderedTrulicity Pen 1.5 mg/0.5 mL subcutaneous solution 0.5 mL = 1.5 mg, Subcutaneous Injection, Every week, rotate injection sites label in guamanian, # 2 mL, 11 Refills, Maintenance, 09/30/20 10:55:00 EST, Solution, [facility]., Partial fill upon patient request, 156, cm, [...]
--- OUTSIDE RECORDS SUMMARY | 2022-10-14 16:34 | XMS_ITS | Continuity of Care Document ---
:1980 Author Organization [facility] Address [address] [place] [address]- Care Team Providers Name Role Phone Edwina PHAM, Natalie Primary Care Physician [place] [facility] [place]s): 08/02/22 - 09/01/22 [facility] [address] [place] [id number] Allergies, Adverse Reactions, Alerts No Known Allergies Immunizations Given and Recorded Vaccine Date Status Refusal Reason SARS-CoV-2 (COVID-19) mRNA BNT-162b2 vac 11/29/21 Recorde d SARS-CoV-2 (COVID-19) mRNA BNT-162b2 vac 04/14/21 Given tetanus/diphtheria/pertussis, acel(Tdap) 10/06/20 Given influenza virus vaccine, inactivated 10/06/20 Given Medications BD SHORT PEN NDL [id number] 31GX5/16 NEDL BD SHORT PEN NDL [id number] 31GX5/16 NEDL, See Instructions, # 120 Unknown, 5 Refills, Maintenance, [facility], 08/02/22 15:31:00 EDT, 156, cm, 07/19/22 [...] Start Date: 07/20/22 Stop Date: 07/04/25 Status: OrderedHilario Solostar Pen 100 units/mL subcutaneous solution = 55 units, Subcutaneous Infusion, Daily, daily in am label in tongan, # 15 mL, 11 Refills, Maintenance, 03/22/22 15:57:00 EDT, [facility] 156, cm, 03/22/22 15:05:00 EDT, Height Start Date: 03/22/22 Status: Orderedlisinopril 10 mg oral tablet 10 mg, 1, tablet, By Mouth, Daily, # 90 tablet, Refills 3, Tot. Refills 3, Maintenance, 10/23/21 11:15:00 EST, Route to Pharmacy Electronically, [facility], Partial fill upon patient request if the prescription is for a schedule II opi... Start Date: 10/23/21 Status: OrderedMetFORMIN (Eqv-Glucophage XR) 500 mg oral tablet, extended release See Instructions, [place] 2 TABLETA POR LA BOCA DOS VECES AL OTTO, # 120 tablet, 11 Refills, [facility], 156, cm, 03/22/22 15:05:00 EDT, Height Start [...] information PersonnelName: Natalie Bland MD Address: Address: [address] [place] [address] [place] [address]-
--- OUTSIDE RECORDS SUMMARY | 2022-10-14 16:34 | XMS_ITS | Continuity of Care Document ---
:1980 Author Organization [facility] Address [address] [place] [id number]- Care Team Providers Name Role Phone Natalie Bland MD Primary Care Physician Encounter [facility] [place] [facility] [id number] Date(s): 10/23/21 - 01/06/22 [facility] [address] [place] [id number]- Attending Physician: Not on Staff, Attending MD [...] 10 mg, By Mouth, Daily, label in indian daily in bedtime, # 90 tablet, 3 Refills, Maintenance, 09/30/20 11:11:00 EST, [facility] request, 156, [...] By Mouth, Daily at bedtime, label in indian, # 90 capsule, Refills 1, Tot. Refills 1, Maintenance, 09/12/20 10:24:00 EDT, Route to Pharmacy Electronically, [facility], 156, cm, 09/12/20 9:33:00 EDT, Height Start Date: 09/12/20 Status: OrderedLantus Solostar Pen 100 units/mL subcutaneous solution = 55 units, Subcutaneous Infusion, Daily, daily in am label in indian, # 13.5 mL, 11 Refills, Maintenance, 12/01/21 12:58:00 EST, [facility], 156, cm, 10/23/21 11:14:00 EST, Height Start Date: 12/01/21 Status: Orderedlidocaine 5% topical cream 1 application, Topically, 3 times a day, PRN Pain , Moderate, # 15 Gm, 0 Refills, Maintenance, 01/05/22 13:02:00 EST, Cream, [facility], Partial fill upon patient request if the prescription is for a schedule II opioid drug., 1 applica... Start Date: 01/05/22 Status: Orderedlisinopril 10 mg oral tablet 10 mg, 1, tablet, By Mouth, Daily, # 90 tablet, Refills 3, Tot. Refills 3, Maintenance, 10/23/21 11:15:00 EST, Route to Pharmacy Electronically, [facility], Partial fill upon patient request if the prescription is for a schedule II opi... Start Date: 10/23/21 Status: OrderedmetFORMIN 1000 mg oral tablet, extended release 1 tablet = 1,000 mg, By Mouth, 2 times a day, label in indian, # 180 tablet, 4 Refills, Maintenance, 03/29/21 9:27:00 EDT, [facility], TO REPLACE 500 mg tablets - please review change with patient, 156, cm, 03/29/21 8:21:00 EDT, Height Start Date: 03/29/21 Stop Date: 06/22/22 Status: Orderedsertraline 100 mg oral tablet 1 tablet = 100 mg, By Mouth, Daily, instr indian; start after completing 50 mg tablets, # 30 tablet, 11 Refills, Maintenance, 07/10/21 15:51:00 EDT, Tablet, [facility] Partial fill upon patient request if the prescription is for a sc... Start Date: 07/10/21 Status: OrderedTrulicity Pen 1.5 mg/0.5 mL subcutaneous solution 0.5 mL = 1.5 mg, Subcutaneous Injection, Every Saturday, rotate injection sites label in indian, #2 mL, 11 Refills, Maintenance, 09/30/20 10:55:00 EST, Solution, [facility]., Partial fill upon patient request, [...]
--- OUTSIDE RECORDS SUMMARY | 2022-10-14 16:34 | XMS_ITS | Continuity of Care Document ---
:1980 Author Organization [facility] Address [address] [place] [address]- Care Team Providers Name Role Phone Natalie Bland MD Primary Care Physician [facility]counter [facility] Date(s): 05/09/22 - 06/08/22 [facility] [address] [place] [id number]- Attending Physician: Shavon Rodas Admitting Physician: AdmShavon chong Referring Physician: Admtr ArRayray Allergies, Adverse Reactions, Alerts No Known Allergies Immunizations Given and Recorded Vaccine Date Status Refusal Reason SARS-CoV-2 (COVID-19) mRNA BNT-162b2 vac 11/29/21 Recorde d SARS-CoV-2 (COVID-19) mRNA BNT-162b2 vac 04/14/21 Given tetanus/diphtheria/pertussis, acel(Tdap) 10/06/20 Given influenza virus vaccine, inactivated 10/06/20 Given Medications atorvastatin 10 mg oral tablet 1 tablet = 10 mg, By Mouth, Daily, label in surinamese daily in bedtime, # 90 tablet, 3 Refills, Maintenance, 09/30/20 11:11:00 EST[facility], 156, cm,09/30/20 [...] By Mouth, Daily at bedtime, label in surinamese, # 90 capsule, Refills 1, Tot. Refills 1, Maintenance, 09/12/20 10:24:00 EDT, Route to Pharmacy Electronically, [facility]., 156, cm, 09/12/20 9:33:00 EDT, Height Start Date: 09/12/20 Status: OrderedJardiance 10 mg oral tablet 1 tablet = 10 mg, By Mouth, Daily in AM, # 30 tablet, 2 Refills, Maintenance, 03/22/22 15:57:00 EDT,Tablet, [facility], Partial fill upon patient request if the prescription is for a schedule II opioid drug., 156, cm, 03/22/22 15:05:0... Start Date: 03/22/22 Status: OrderedLantus Solostar Pen 100 units/mL subcutaneous solution = 55 units, Subcutaneous Infusion, Daily, daily in am label in surinamese, # 15 mL, 11 Refills, Maintenance, 03/22/22 15:57:00 EDT, [facility]., 156, cm, 03/22/22 15:05:00 EDT, Height Start Date: 03/22/22 Status: Orderedlidocaine 5% topical cream 1 application, Topically, 3 times a day, PRN Pain , Moderate, # 15 Gm, 0 Refills, Maintenance, 01/05/22 13:02:00 EST, Cream, [facility]., Partial fill upon patient request if the prescription is for a schedule II opioid drug., 1 applica... Start Date: 01/05/22 Status: Orderedlisinopril 10 mg oral tablet 10 mg, 1, tablet, By Mouth, Daily, # 90 tablet, Refills 3, Tot. Refills 3, Maintenance, 10/23/21 11:15:00 EST, Route to Pharmacy Electronically, [facility], Partial fill upon patient request if the prescription is for a schedule II opi... Start Date: 10/23/21 Status: Orderedmeloxicam 15 mg oral tablet 1 tablet = 15 mg, By Mouth, Daily, # 14 tablet, 0 Refills, Maintenance, 01/24/22 15:01:00 EST, Tablet, [facility] Partial fill upon patient request if the prescription is for a schedule II opioid drug., 156, cm, 01/24/22 14:31:00 EST,... Start Date: 01/24/22 Stop Date: 02/07/22 Status: OrderedmetFORMIN 1000 mg oral tablet, extended release 1 tablet = 1,000 mg, By Mouth, 2 times a day, label in surinamese, # 180 tablet, 4 Refills, Maintenance, 03/29/21 9:27:00 EDT, [facility]., TO REPLACE 500 mg tablets - please review change with patient, 156, cm, 03/29/21 8:21:00 EDT, Height Start Date: 03/29/21 Stop Date: 06/22/22 Status: Orderedsertraline 100 mg oral tablet 1 tablet = 100 mg, By Mouth, Daily, instr surinamese; start after completing 50 mg tablets, # 30 tablet, 11 Refills, Maintenance, 07/10/21 15:51:00 EDT, Tablet, [facility]., Partial fill upon patient request if [...]
--- OUTSIDE RECORDS SUMMARY | 2022-10-14 16:35 | XMS_ITS | Continuity of Care Document ---
:1980 Author Organization [facility] Address [address] [place] [id number]- Care Team Providers Name Role Phone Kim Archer DO Primary Care Physician Encounter [facility] Date(s): 01/21/21 - 03/02/[address] [id number]- Attending Physician: Kim Archer DO Admitting Physician: Kim Archer DO Referring Physician: Kim Archer DO Allergies, Adverse Reactions, Alerts Substance Reaction Severity Status NKA Active Immunizations Given and Recorded Vaccine Date Status Refusal Reason tetanus/diphtheria/pertussis, acel(Tdap) 10/06/20 Given influenza virus vaccine, inactivated 10/06/20 Given Medications atorvastatin 10 mg oral tablet 1 tablet = 10 mg, By Mouth, Daily, label in swiss daily in bedtime, # 90 tablet, 3 Refills, Maintenance, 09/30/20 11:11:00 EST[facility], [...] By Mouth, Daily at bedtime, label in swiss, # 90 capsule, Refills 1, Tot. Refills 1, Maintenance, 09/12/20 10:24:00 EDT, Route to Pharmacy Electronically, [facility], 156, cm, 09/12/20 9:33:00 EDT, Height Start Date: 09/12/20 Status: OrderedLac-Hydrin 12% lotion 1 application, Topically, 2 times a day, instr swiss, # 567 Gm, 1 Refills, Maintenance, 01/12/21 16:46:00 EST, Lotion, [facility], Partial fill upon patient request if the prescription is for a schedule II opioid drug., 1 application... Start Date: 01/12/21 Status: OrderedLantus Solostar Pen 100 units/mL subcutaneous solution = 45 units, Subcutaneous Infusion, Daily, before a meal label in swiss, # 13.5 mL, 11 Refills, Maintenance, 01/30/21 14:01:00 EDT, [facility], 156, cm, 01/12/21 16:08:00 EST, Height Start Date: 01/30/21 Status: Orderedlisinopril 5 mg oral tablet 5 mg, 1, tablet, By Mouth, Daily, label in swiss, # 90 tablet, Refills 11, Tot. Refills 11, Maintenance, 09/12/20 10:21:00 EDT, Route to Pharmacy Electronically, [facility], 156, cm, 09/12/20 9:33:00 EDT, Height Start Date: 09/12/20 Status: OrderedmetFORMIN 1000 mg oral tablet, extended release 2 tablet = 2,000 mg, By Mouth, Daily, label in swiss with evening meal, # 180 tablet, 4 Refills, Maintenance, 02/16/21 10:12:00 EDT, [facility] fill upon patient request if the prescription is for a schedule II opioid drug.... Start Date: 02/16/21 Stop Date: 05/12/22 Status: Orderedsertraline 25 mg oral tablet 1 tablet = 25 mg, By Mouth, Daily, label in swiss, # 30 tablet, 11 Refills, Maintenance, 12/09/20 9:47:00 EST, Tablet, [facility] Partial fill upon patient request if the prescription is for a schedule II opioid drug., 156, cm, 09/18... Start Date: 12/09/20 Status: OrderedTrulicity Pen 1.5 mg/0.5 mL subcutaneous solution 0.5 mL = 1.5 mg, Subcutaneous Injection, Every week, rotate injection sites label in swiss, # 2 mL, 11 Refills, Maintenance, 09/30/20 10:55:00 EST, Solution, [facility] Partial fill upon patient request, [...]
--- OUTSIDE RECORDS SUMMARY | 2022-10-14 16:35 | XMS_ITS | Continuity of Care Document ---
:1980 Author Organization [facility] Address [address] [place] [phone]- Care Team Providers Name Role Phone Kim Archer DO Primary Care Physician [facility]counter [facility] Date[facility]s): 08/28/21 - 09/27/21 [facility] [address] [place] [id number] Attending Physician: Shavon Rodas Admitting Physician: AdmtrShavon Referring Physician: Admtr, Ar8 Allergies, Adverse Reactions, Alerts Substance Reaction Severity Status NKA Active Immunizations Given and Recorded Vaccine Date Status Refusal Reason SARS-CoV-2 (COVID-19) mRNA BNT-162b2 vac 04/14/21 Given tetanus/diphtheria/pertussis, acel(Tdap) 10/06/20 Given influenza virus vaccine, inactivated 10/06/20 Given Medications atorvastatin 10 mg oral tablet 1 tablet = 10 mg, By Mouth, Daily, label in indonesian daily in bedtime, # 90 tablet, 3 Refills, Maintenance, 09/30/20 11:11:00 EST, [facility], Partial fill upon patient request, 156, cm,09/30/20 10:26:00 EST, Height Start Date: 09/30/20 Status: Orderedcetirizine 10 mg oral tablet 1 tablet = 10 mg, By Mouth, Daily, # 30 tablet, 0 Refills, Maintenance, 04/25/21 13:48:00 EDT, Tablet, [facility]., Partial fill upon patient request if the prescription is for a schedule II opioid drug., 156, cm, 04/25/21 13:01:00 EDT,... Start Date: 04/25/21 Status: Orderedgabapentin 300 mg oral capsule 300 mg, 1, capsule, By Mouth, Daily at bedtime, label in indonesian, # 90 capsule, Refills 1, Tot. Refills 1, Maintenance, 09/12/20 10:24:00 EDT, Route to Pharmacy Electronically, [facility], 156, cm, 09/12/20 9:33:00 EDT, Height Start Date: 09/12/20 Status: OrderedLac-Hydrin 12% lotion 1 application, Topically, 2 times a day, instr indonesian, # 567 Gm, 1 Refills, Maintenance, 01/12/21 16:46:00 EST, Lotion, [facility], Partial fill upon patient request if the prescription is for a schedule II opioid drug., 1 application... Start Date: 01/12/21 Status: OrderedLantus Solostar Pen 100 units/mL subcutaneous solution = 55 units, Subcutaneous Infusion, Daily, daily in am label in indonesian, # 13.5 mL, 11 Refills, Maintenance, 01/30/21 14:01:00 EDT, [facility], 156, cm, 01/12/21 16:08:00 EST, Height Start Date: 01/30/21 Status: Orderedlisinopril 5 mg oral tablet 5 mg, 1, tablet, By Mouth, Daily, label in indonesian, # 90 tablet, Refills 11, Tot. Refills 11, Maintenance, 09/12/20 10:21:00 EDT, Route to Pharmacy Electronically, [facility], 156, cm, 09/12/20 9:33:00 EDT, Height Start Date: 09/12/20 Status: OrderedmetFORMIN 1000 mg oral tablet, extended release 1 tablet = 1,000 mg, By Mouth, 2 times a day, label in indonesian, # 180 tablet, 4 Refills, Maintenance, 03/29/21 9:27:00 EDT, [facility], TO REPLACE 500 mg tablets - please review change with patient, 156, cm, 03/29/21 8:21:00 EDT, Height Start Date: 03/29/21 Stop Date: 06/22/22 Status: Orderedsertraline 100 mg oral tablet 1 tablet = 100 mg, By Mouth, Daily, instr indonesian; start after completing 50 mg tablets, # 30 tablet, 11 Refills, Maintenance, 07/10/21 15:51:00 EDT, Tablet, [facility]., Partial fill upon patient request if the prescription is for a sc... Start Date: 07/10/21 Status: Orderedsertraline 50 mg oral tablet 1 tablet = 50 mg, By Mouth, Daily, instr indonesian, # 14 tablet, 0 Refills, Maintenance, 07/10/21 15:51:00 EDT, Tablet, [facility]., Partial fill upon patient request if the prescription is for a schedule II opioid drug., 156, cm, ... Start Date: 07/10/21 Stop Date: 07/24/21 Status: OrderedTrulicity Pen 1.5 mg/0.5 mL subcutaneous solution 0.5 mL = 1.5 mg, Subcutaneous Injection, Every week, rotate injection sites label in indonesian, # 2 mL, 11 Refills, Maintenance, 09/30/20 10:55:00 EST, Solution, [facility]., Partial fill upon patient request, [...]
--- OUTSIDE RECORDS SUMMARY | 2022-10-14 16:35 | XMS_ITS | Continuity of Care Document ---
:1980 Author Organization [facility] Address [address] [place] [address]- Care Team Providers Name Role Phone Kim Archer DO Primary Care Physician [facility] Date(s): 04/25/21 - 05/25/21 [facility] [address] [place] [id number] Allergies, Adverse Reactions, Alerts Substance Reaction [...] tablet, 3 Refills, Maintenance, 09/30/20 11:11:00 EST, [facility], [facility] upon [facility], [...] 0 Refills, Maintenance, 04/25/21 13:48:00 EDT, Tablet, [facility]., Partial fill upon patient request if [...] 09/12/20 10:24:00 EDT, Route to Pharmacy Electronically, [facility]., 156, cm, 09/12/20 9:33:00 EDT, Height Start Date: 09/12/20 Status: OrderedLac-Hydrin 12% lotion 1 application, Topically, 2 times a day, instr maltese, # 567 Gm, 1 Refills, Maintenance, 01/12/21 16:46:00 EST, Lotion, [facility], Partial fill upon patient request if the prescription is for a schedule II opioid drug., 1 application... Start Date: 01/12/21 Status: OrderedLantus Solostar Pen 100 units/mL subcutaneous solution = 55 units, Subcutaneous Infusion, Daily, daily in am label in maltese, # 13.5 mL, 11 Refills, Maintenance, 01/30/21 14:01:00 EDT, [facility], 156, cm, 01/12/21 16:08:00 EST, Height Start Date: 01/30/21 Status: Orderedlisinopril 5 mg oral tablet 5 mg, 1, tablet, By Mouth, Daily, label in maltese, # 90 tablet, Refills 11, Tot. Refills 11, Maintenance, 09/12/20 10:21:00 EDT, Route to Pharmacy Electronically, [facility], 156, cm, 09/12/20 9:33:00 EDT, Height Start Date: 09/12/20 Status: OrderedmetFORMIN 1000 mg oral tablet, extended release 1 tablet = 1,000 mg, By Mouth, 2 times a day, label in maltese, # 180 tablet, 4 Refills, Maintenance, 03/29/21 9:27:00 EDT, [facility], TO REPLACE 500 mg tablets - please review change with patient, 156, cm, 03/29/21 8:21:00 EDT, Height Start Date: 03/29/21 Stop Date: 06/22/22 Status: Orderedpermethrin 5% topical cream 1 application, Topically, Once, Apply to skin from head to soles. Leave on 8-10 hours then wash off,# 60 mL, 0 Refills, Soft Stop, 05/04/21 14:40:00 EDT, Lotion, [facility], Instructions in maltese;, 1 application Topically Once,Instr... Start Date: 05/04/21 Status: Orderedsertraline 25 mg oral tablet 1 tablet = 25 mg, By Mouth, Daily, label in maltese, # 30 tablet, 11 Refills, Maintenance, 12/09/20 9:47:00 EST, Tablet, [facility]., Partial fill upon patient request if the prescription is for a schedule II opioid drug., 156, cm, 09/18... Start Date: 12/09/20 Status: OrderedTrulicity Pen 1.5 mg/0.5 mL subcutaneous solution 0.5 mL = 1.5 mg, Subcutaneous Injection, Every week, rotate injection sites label in maltese, # 2 mL, 11 Refills, Maintenance, 09/30/20 10:55:00 EST, Solution, [facility]., Partial fill upon patient request, 156, [...]
--- OUTSIDE RECORDS SUMMARY | 2022-10-14 16:35 | XMS_ITS | Continuity of Care Document ---
:1980 Author Organization [facility] Address [address] [place] [address]- Care Team Providers Name Role Phone Kim Archer DO Primary Care Physician Encounter [facility] Date(s): 06/20/21 - 07/20/21 [facility] [address] [place] [id number] Allergies, Adverse Reactions, Alerts Substance Reaction Severity Status NKA Active Immunizations Given and Recorded Vaccine Date Status Refusal Reason SARS-CoV-2 (COVID-19) mRNA BNT-162b2 vac 04/14/21 Given tetanus/diphtheria/pertussis, acel(Tdap) 10/06/20 Given influenza virus vaccine, inactivated 10/06/20 Given Medications atorvastatin 10 mg oral tablet 1 tablet = 10 mg, By Mouth, Daily, label in belizean daily in bedtime, # 90 tablet, 3 Refills, Maintenance, 09/30/20 11:11:00 EST, [facility]., Partial fill upon patient request, 156, cm,09/30/20 10:26:00 EST, Height Start Date: 09/30/20 Status: Orderedcetirizine 10 mg oral tablet 1 tablet = 10 mg, By Mouth, Daily, # 30 tablet, 0 Refills, Maintenance, 04/25/21 13:48:00 EDT, Tablet, [facility]., Partial fill upon patient request if the prescription is for a schedule II opioid drug., 156, cm, 04/25/21 13:01:00 EDT,... Start Date: 04/25/21 Status: Orderedgabapentin 300 mg oral capsule 300 mg, 1, capsule, By Mouth, Daily at bedtime, label in belizean, # 90 capsule, Refills 1, Tot. Refills 1, Maintenance, 10/26/20 10:24:00 EDT, Route to Pharmacy Electronically, [facility], 156, cm, 09/12/20 9:33:00 EDT, Height Start Date: 09/12/20 Status: OrderedLac-Hydrin 12% lotion 1 application, Topically, 2 times a day, instr belizean, # 567 Gm, 1 Refills, Maintenance, 01/12/21 16:46:00 EST, Lotion, [facility], Partial fill upon patient request if the prescription is for a schedule II opioid drug., 1 application... Start Date: 01/12/21 Status: OrderedLantus Solostar Pen 100 units/mL subcutaneous solution = 55 units, Subcutaneous Infusion, Daily, daily in am label in belizean, # 13.5 mL, 11 Refills, Maintenance, 01/30/21 14:01:00 EDT, [facility], 156, cm, 01/12/21 16:08:00 EST, Height Start Date: 01/30/21 Status: Orderedlisinopril 5 mg oral tablet 5 mg, 1, tablet, By Mouth, Daily, label in belizean, # 90 tablet, Refills 11, Tot. Refills 11, Maintenance, 09/12/20 10:21:00 EDT, Route to Pharmacy Electronically, [facility], 156, cm, 09/12/20 9:33:00 EDT, Height Start Date: 09/12/20 Status: OrderedmetFORMIN 1000 mg oral tablet, extended release 1 tablet = 1,000 mg, By Mouth, 2 times a day, label in belizean, # 180 tablet, 4 Refills, Maintenance, 03/29/21 9:27:00 EDT, [facility], TO REPLACE 500 mg tablets - please review change with patient, 156, cm, 03/29/21 8:21:00 EDT, Height Start Date: 03/29/21 Stop Date: 06/22/22 Status: Orderedsertraline 100 mg oral tablet 1 tablet = 100 mg, By Mouth, Daily, instr belizean; start after completing 50 mg tablets, # 30 tablet, 11 Refills, Maintenance, 07/10/21 15:51:00 EDT, Tablet, [facility] Partial fill upon patient request if the prescription is for a sc... Start Date: 07/10/21 Status: Orderedsertraline 50 mg oral tablet 1 tablet = 50 mg, By Mouth, Daily, instr belizean, # 14 tablet, 0 Refills, Maintenance, 07/10/21 15:51:00 EDT, Tablet, [facility] Partial fill upon patient request if the prescription is for a schedule II opioid drug., 156, cm, ... Start Date: 07/10/21 Stop Date: 07/24/21 Status: OrderedTrulicity Pen 1.5 mg/0.5 mL subcutaneous solution 0.5 mL = 1.5 mg, Subcutaneous Injection, Every week, rotate injection sites label in belizean, # 2 mL, 11 Refills, Maintenance, 09/30/20 10:55:00 EST, Solution, [facility] Partial fill upon patient request, [...]
--- OUTSIDE RECORDS SUMMARY | 2022-10-14 16:35 | XMS_ITS | Continuity of Care Document ---
:1980 Author Organization [facility] Address [address] [place] [address]- Care Team Providers Name Role Phone Kim Archer DO Primary Care Physician [facility] Date(s): 01/30/21 - 03/01/21 [facility] [address] [place] [id number] Allergies, Adverse Reactions, Alerts Substance Reaction Severity Status NKA Active Immunizations Given and Recorded Vaccine Date Status Refusal Reason tetanus/diphtheria/pertussis, acel(Tdap) 10/06/20 Given influenza virus vaccine, inactivated 10/06/20 Given Medications atorvastatin 10 mg oral tablet 1 tablet = 10 mg, By Mouth, Daily, label in central african daily in bedtime, # 90 tablet, 3 Refills, Maintenance, 09/30/20 11:11:00 EST[facility] patient [...] By Mouth, Daily at bedtime, label in central african, # 90 capsule, Refills 1, Tot. Refills 1, Maintenance, 09/12/20 10:24:00 EDT, Route to Pharmacy Electronically, [facility], 156, cm, 09/12/20 9:33:00 EDT, Height Start Date: 09/12/20 Status: OrderedLac-Hydrin 12% lotion 1 application, Topically, 2 times a day, instr central african, # 567 Gm, 1 Refills, Maintenance, 01/12/21 16:46:00 EST, Lotion, [facility], Partial fill upon patient request if the prescription is for a schedule II opioid drug., 1 application... Start Date: 01/12/21 Status: OrderedLantus Solostar Pen 100 units/mL subcutaneous solution = 45 units, Subcutaneous Infusion, Daily, before a meal label in central african, # 13.5 mL, 11 Refills, Maintenance, 01/30/21 14:01:00 EDT, [facility], 156, cm, 01/12/21 16:08:00 EST, Height Start Date: 01/30/21 Status: Orderedlisinopril 5 mg oral tablet 5 mg, 1, tablet, By Mouth, Daily, label in central african, # 90 tablet, Refills 11, Tot. Refills 11, Maintenance, 09/12/20 10:21:00 EDT, Route to Pharmacy Electronically, [facility], 156, cm, 09/12/20 9:33:00 EDT, Height Start Date: 09/12/20 Status: OrderedmetFORMIN 1000 mg oral tablet, extended release 2 tablet = 2,000 mg, By Mouth, Daily, label in central african with evening meal, # 180 tablet, 4 Refills, Maintenance, 02/16/21 10:12:00 EDT, [facility]., Partial fill upon patient request if the prescription is for a schedule II opioid drug.... Start Date: 02/16/21 Stop Date: 05/12/22 Status: Orderedsertraline 25 mg oral tablet 1 tablet = 25 mg, By Mouth, Daily, label in central african, # 30 tablet, 11 Refills, Maintenance, 12/09/20 9:47:00 EST, Tablet, [facility]., Partial fill upon patient request if the prescription is for a schedule II opioid drug., 156, cm, 09/18... Start Date: 12/09/20 Status: OrderedTrulicity Pen 1.5 mg/0.5 mL subcutaneous solution 0.5 mL = 1.5 mg, Subcutaneous Injection, Every week, rotate injection sites label in central african, # 2 mL, 11 Refills, Maintenance, 09/30/20 10:55:00 EST, Solution, [facility]., Partial fill upon patient request, 156, [...]
--- OUTSIDE RECORDS SUMMARY | 2022-10-14 16:35 | XMS_ITS | Continuity of Care Document ---
:1980 Author Organization [facility] Address [address] [place] [address]- Care Team Providers Name Role Phone Kim Archer DO Primary Care Physician Encounter [facility] Date(s): 04/21/21 - 07/08/21 [facility] [address] [place] [id number] Attending Physician: Kim Archer DO Admitting Physician: Kim Archer DO Allergies, Adverse Reactions, Alerts Substance Reaction Severity Status NKA Active Immunizations Given and Recorded Vaccine Date Status Refusal Reason SARS-CoV-2 (COVID-19) mRNA BNT-162b2 vac 04/14/21 Given tetanus/diphtheria/pertussis, acel(Tdap) 10/06/20 Given influenza virus vaccine, inactivated 10/06/20 Given Medications atorvastatin 10 mg oral tablet 1 tablet = 10 mg, By Mouth, Daily, label in romanian daily in bedtime, # 90 tablet, 3 Refills, Maintenance, 09/30/20 11:11:00 EST, [facility], 156, [...] By Mouth, Daily at bedtime, label in romanian, # 90 capsule, Refills 1, Tot. Refills 1, Maintenance, 09/12/20 10:24:00 EDT, Route to Pharmacy Electronically, [facility]., 156, cm, 09/12/20 9:33:00 EDT, Height Start Date: 09/12/20 Status: OrderedLac-Hydrin 12% lotion 1 application, Topically, 2 times a day, instr romanian, # 567 Gm, 1 Refills, Maintenance, 01/12/21 16:46:00 EST, Lotion, [facility], Partial fill upon patient request if the prescription is for a schedule II opioid drug., 1 application... Start Date: 01/12/21 Status: OrderedLantus Solostar Pen 100 units/mL subcutaneous solution = 55 units, Subcutaneous Infusion, Daily, daily in am label in romanian, # 13.5 mL, 11 Refills, Maintenance, 01/30/21 14:01:00 EDT, [facility], 156, cm, 01/12/21 16:08:00 EST, Height Start Date: 01/30/21 Status: Orderedlisinopril 5 mg oral tablet 5 mg, 1, tablet, By Mouth, Daily, label in romanian, # 90 tablet, Refills 11, Tot. Refills 11, Maintenance, 09/12/20 10:21:00 EDT, Route to Pharmacy Electronically, [facility], 156, cm, 09/12/20 9:33:00 EDT, Height Start Date: 09/12/20 Status: OrderedmetFORMIN 1000 mg oral tablet, extended release 1 tablet = 1,000 mg, By Mouth, 2 times a day, label in romanian, # 180 tablet, 4 Refills, Maintenance, 03/29/21 9:27:00 EDT, [facility], TO REPLACE 500 mg tablets - please review change with patient, 156, cm, 03/29/21 8:21:00 EDT, Height Start Date: 03/29/21 Stop Date: 06/22/22 Status: OrderedPen [place], 31 G x 8 mm BD Ultra Fine III See Instructions, # 300 each, Refills 5, Tot. Refills 5, Maintenance, used 4 times per day for type 2 diabetes mellitus, 07/06/21 11:47:00 EDT, Supply, 156, cm, 05/04/21 14:18:00 EDT, Height Start Date: 07/06/21 Stop Date: 12/28/22 Status: Orderedpermethrin 5% topical cream 1 application, Topically, Once, Apply to skin from head to soles. Leave on 8-10 hours then wash off,# 60 mL, 0 Refills, Soft Stop, 05/04/21 14:40:00 EDT, Lotion, [facility]., Instructions in romanian;, 1 application Topically Once,Instr... Start Date: 05/04/21 Status: Orderedsertraline 25 mg oral tablet 1 tablet = 25 mg, By Mouth, Daily, label in romanian, # 30 tablet, 11 Refills, Maintenance, 12/09/20 9:47:00 EST, Tablet, [facility] Partial fill upon patient request if the prescription is for a schedule II opioid drug., 156, cm, 09/18... Start Date: 12/09/20 Status: OrderedTrulicity Pen 1.5 mg/0.5 mL subcutaneous solution 0.5 mL = 1.5 mg, Subcutaneous Injection, Every week, rotate injection sites label in romanian, # 2 mL, 11 Refills, Maintenance, 09/30/20 [...]
--- OUTSIDE RECORDS SUMMARY | 2022-10-14 16:35 | XMS_ITS | Continuity of Care Document ---
:1980 Author Organization [facility] Address [address] [place] [address]- Care Team Providers Name Role Phone Renita Lawrence NP Primary Care Physician Encounter [facility] Date(s): 10/04/20 - 11/03/20 [facility] [address] [place] [id number] Allergies, Adverse Reactions, Alerts Substance Reaction Severity Status NKA Active Immunizations Given and Recorded Vaccine Date Status Refusal Reason tetanus/diphtheria/pertussis, acel(Tdap) 10/06/20 Given influenza virus vaccine, inactivated 10/06/20 Given Medications atorvastatin 10 mg oral tablet 1 tablet = 10 mg, By Mouth, Daily, label in [place] citizen daily in bedtime, # 90 tablet, 3 Refills, Maintenance, 09/30/20 11:11:00 EST, [facility] upon [...] By Mouth, Daily at bedtime, label in [place] citizen, # 90 capsule, Refills 1, Tot. Refills 1, Maintenance, 09/12/20 10:24:00 EDT, Route to Pharmacy Electronically, [facility], 156, cm, 09/12/20 9:33:00 EDT, Height Start Date: 09/12/20 Status: OrderedLantus Solostar Pen 100 units/mL subcutaneous solution = 35 units, Subcutaneous Infusion, Daily, before a meal label in vatican citizen, # 12 mL, 11 Refills, Maintenance, 09/12/20 10:20:00 EDT, [facility], 156, cm, 09/12/20 9:33:00 EDT, Height Start Date: 09/12/20 Status: Orderedlisinopril 5 mg oral tablet 5 mg, 1, tablet, By Mouth, Daily, label in [place] citizen, # 90 tablet, Refills 11, Tot. Refills 11, Maintenance, 09/12/20 10:21:00 EDT, Route to Pharmacy Electronically, [facility], 156, cm, 09/12/20 9:33:00 EDT, Height Start Date: 09/12/20 Status: OrderedmetFORMIN 850 mg oral tablet 1 tablet = 850 mg, By Mouth, Daily in AM, label in vatican citizen, # 90 tablet, 11 Refills, Maintenance, 09/12/20 10:21:00 EDT, Tablet, [facility], 156, cm, 09/12/20 9:33:00 EDT, Height Start Date: 09/12/20 Status: OrderedTrulicity Pen 1.5 mg/0.5 mL subcutaneous solution 0.5 mL = 1.5 mg, Subcutaneous Injection, Every week, rotate injection sites label in vatican citizen, # 2 mL, 11 Refills, Maintenance, 09/30/20 10:55:00 EST, Solution, [facility], [facility] fill upon patient request, 156, cm, 09/30/20 10:26:00... Start Date: 09/30/20 Status: Ordered Problem List Condition Effective Dates Status Health Status Informant Diabetes(Confirmed) Active Hyperlipidemia(Confirmed) Active Depression with anxiety(Confirmed) Active Obesity (BMI 30.0-34.9)(Confirmed) Active Diabetic retinopathy(Confirmed) Active Social History Social History Type Response Smoking Status Never (less than 100 in life time) entered on: 09/12/20 Sex
--- OUTSIDE RECORDS SUMMARY | 2022-10-14 16:35 | XMS_ITS | Continuity of Care Document ---
:1980 Author Organization [facility] Address [address] [place] [id number]- Care Team Providers Name Role Phone Kim Archer DO Primary Care Physician Encounter [facility] Date(s): 01/21/21 - 03/02/[address] [address]- Attending Physician: Kim Archer DO Admitting Physician: Kim Archer DO Referring Physician: Kim Archer DO Allergies, Adverse Reactions, Alerts Substance Reaction Severity Status NKA Active Immunizations Given and Recorded Vaccine Date Status Refusal Reason tetanus/diphtheria/pertussis, acel(Tdap) 10/06/20 Given influenza virus vaccine, inactivated 10/06/20 Given Medications atorvastatin 10 mg oral tablet 1 tablet = 10 mg, By Mouth, Daily, label in zimbabwean daily in bedtime, # 90 tablet, 3 Refills, Maintenance, 09/30/20 11:11:00 EST, [facility], [facility] fill [...] By Mouth, Daily at bedtime, label in zimbabwean, # 90 capsule, Refills 1, Tot. Refills 1, Maintenance, 09/12/20 10:24:00 EDT, Route to Pharmacy Electronically, [facility], 156, cm, 09/12/20 9:33:00 EDT, Height Start Date: 09/12/20 Status: OrderedLac-Hydrin 12% lotion 1 application, Topically, 2 times a day, instr zimbabwean, # 567 Gm, 1 Refills, Maintenance, 01/12/21 16:46:00 EST, Lotion, [facility], Partial fill upon patient request if the prescription is for a schedule II opioid drug., 1 application... Start Date: 01/12/21 Status: OrderedLantus Solostar Pen 100 units/mL subcutaneous solution = 45 units, Subcutaneous Infusion, Daily, before a meal label in zimbabwean, # 13.5 mL, 11 Refills, Maintenance, 01/30/21 14:01:00 EDT, [facility], 156, cm, 01/12/21 16:08:00 EST, Height Start Date: 01/30/21 Status: Orderedlisinopril 5 mg oral tablet 5 mg, 1, tablet, By Mouth, Daily, label in zimbabwean, # 90 tablet, Refills 11, Tot. Refills 11, Maintenance, 09/12/20 10:21:00 EDT, Route to Pharmacy Electronically, [facility], 156, cm, 09/12/20 9:33:00 EDT, Height Start Date: 09/12/20 Status: OrderedmetFORMIN 1000 mg oral tablet, extended release 2 tablet = 2,000 mg, By Mouth, Daily, label in zimbabwean with evening meal, # 180 tablet, 4 Refills, Maintenance, 02/16/21 10:12:00 EDT, [facility] Partial fill upon patient request if the prescription is for a schedule II opioid drug.... Start Date: 02/16/21 Stop Date: 05/12/22 Status: Orderedsertraline 25 mg oral tablet 1 tablet = 25 mg, By Mouth, Daily, label in zimbabwean, # 30 tablet, 11 Refills, Maintenance, 12/09/20 9:47:00 EST, Tablet, [facility] Partial fill upon patient request if the prescription is for a schedule II opioid drug., 156, cm, 09/18... Start Date: 12/09/20 Status: OrderedTrulicity Pen 1.5 mg/0.5 mL subcutaneous solution 0.5 mL = 1.5 mg, Subcutaneous Injection, Every week, rotate injection sites label in zimbabwean, # 2 mL, 11 Refills, Maintenance, 09/30/20 10:55:00 EST, Solution, [facility] Partial fill upon patient request, 156, [...]
--- OUTSIDE RECORDS SUMMARY | 2022-10-14 16:35 | XMS_ITS | Continuity of Care Document ---
:1980 Author Organization [facility] Address [address] [place] [address]- Care Team Providers Name Role Phone Kim Archer DO Primary Care Physician Encounter [facility] Date(s): 07/10/21 - 08/26/21 [facility] [address] [place] [id number] Attending Physician: Not on Staff, Attending MD Allergies, Adverse Reactions, Alerts Substance Reaction Severity Status NKA Active Immunizations Given and Recorded Vaccine Date Status Refusal Reason SARS-CoV-2 (COVID-19) mRNA BNT-162b2 vac 04/14/21 Given tetanus/diphtheria/pertussis, acel(Tdap) 10/06/20 Given influenza virus vaccine, inactivated 10/06/20 Given Medications atorvastatin 10 mg oral tablet 1 tablet = 10 mg, By Mouth, Daily, label in finnish daily in bedtime, # 90 tablet, 3 Refills, Maintenance, 09/30/20 11:11:00 EST, [facility], Partial fill upon patient request, 156, cm,09/30/20 10:26:00 EST, Height Start Date: 09/30/20 Status: Orderedcetirizine 10 mg oral tablet 1 tablet = 10 mg, By Mouth, Daily, # 30 tablet, 0 Refills, Maintenance, 04/25/21 13:48:00 EDT, Tablet, [facility]., Partial fill upon patient request if the prescription is for a schedule II opioid drug., 156, cm, 04/25/21 13:01:00 EDT,... Start Date: 04/25/21 Status: Orderedgabapentin 300 mg oral capsule 300 mg, 1, capsule, By Mouth, Daily at bedtime, label in finnish, # 90 capsule, Refills 1, Tot. Refills 1, Maintenance, 09/12/20 10:24:00 EDT, Route to Pharmacy Electronically, [facility], 156, cm, 09/12/20 9:33:00 EDT, Height Start Date: 09/12/20 Status: OrderedLac-Hydrin 12% lotion 1 application, Topically, 2 times a day, instr finnish, # 567 Gm, 1 Refills, Maintenance, 01/12/21 16:46:00 EST, Lotion, [facility], Partial fill upon patient request if the prescription is for a schedule II opioid drug., 1 application... Start Date: 01/12/21 Status: OrderedLantus Solostar Pen 100 units/mL subcutaneous solution = 55 units, Subcutaneous Infusion, Daily, daily in am label in finnish, # 13.5 mL, 11 Refills, Maintenance, 01/30/21 14:01:00 EDT, [facility], 156, cm, 01/12/21 16:08:00 EST, Height Start Date: 01/30/21 Status: Orderedlisinopril 5 mg oral tablet 5 mg, 1, tablet, By Mouth, Daily, label in finnish, # 90 tablet, Refills 11, Tot. Refills 11, Maintenance, 09/12/20 10:21:00 EDT, Route to Pharmacy Electronically, [facility], 156, cm, 09/12/20 9:33:00 EDT, Height Start Date: 09/12/20 Status: OrderedmetFORMIN 1000 mg oral tablet, extended release 1 tablet = 1,000 mg, By Mouth, 2 times a day, label in finnish, # 180 tablet, 4 Refills, Maintenance, 03/29/21 9:27:00 EDT, [facility], TO REPLACE 500 mg tablets - please review change with patient, 156, cm, 03/29/21 8:21:00 EDT, Height Start Date: 03/29/21 Stop Date: 06/22/22 Status: Orderedsertraline 100 mg oral tablet 1 tablet = 100 mg, By Mouth, Daily, instr finnish; start after completing 50 mg tablets, # 30 tablet, 11 Refills, Maintenance, 07/10/21 15:51:00 EDT, Table[facility] fill upon patient request if the prescription is for a sc... Start Date: 07/10/21 Status: Orderedsertraline 50 mg oral tablet 1 tablet = 50 mg, By Mouth, Daily, instr finnish, # 14 tablet, 0 Refills, Maintenance, 07/10/21 15:51:00 EDT, Tablet, [facility] Partial fill upon patient request if the prescription is for a schedule II opioid drug., 156, cm, 2... Start Date: 07/10/21 Stop Date: 07/24/21 Status: OrderedTrulicity Pen 1.5 mg/0.5 mL subcutaneous solution 0.5 mL = 1.5 mg, Subcutaneous Injection, Every week, rotate injection sites label in finnish, # 2 mL, 11 Refills, Maintenance, 09/30/20 10:55:00 EST, Solution, [facility] Partial fill upon patient request, [...]
--- OUTSIDE RECORDS SUMMARY | 2022-10-14 16:35 | XMS_ITS | Continuity of Care Document ---
:1980 Author Organization [facility] Address [address] [place] [address]- Care Team Providers Name Role Phone Edwina PHAM, Natalie Primary Care Physician Encounter [facility] Date(s): 03/23/22 - 06/08/22 [facility] [address] [place] [id number]- Attending Physician: Not on Staff, Attending MD [...] 10 mg, By Mouth, Daily, label in cymraes daily in bedtime, # 90 tablet, 3 Refills, Maintenance, 09/30/20 11:11:00 EST, [facility], [facility] upon [...] By Mouth, Daily at bedtime, label in cymraes, # 90 capsule, Refills 1, Tot. Refills 1, Maintenance, 09/12/20 10:24:00 EDT, Route to Pharmacy Electronically, [facility] 156, cm, 09/12/20 9:33:00 EDT, Height Start Date: 09/12/20 Status: OrderedJardiance 10 mg oral tablet 1 tablet = 10 mg, By Mouth, Daily in AM, # 30 tablet, 2 Refills, Maintenance, 03/22/22 15:57:00 EDT,Tablet, [facility], Partial fill upon patient request if the prescription is for a schedule II opioid drug., 156, cm, 03/22/22 15:05:0... Start Date: 03/22/22 Status: OrderedLantus Solostar Pen 100 units/mL subcutaneous solution = 55 units, Subcutaneous Infusion, Daily, daily in am label in cymraes, # 15 mL, 11 Refills, Maintenance, 03/22/22 15:57:00 EDT, [facility]., 156, cm, 03/22/22 15:05:00 EDT, Height Start Date: 03/22/22 Status: Orderedlidocaine 5% topical cream 1 application, Topically, 3 times a day, PRN Pain , Moderate, # 15 Gm, 0 Refills, Maintenance, 01/05/22 13:02:00 EST, Cream, [facility]., Partial fill upon patient request if the prescription is for a schedule II opioid drug., 1 applica... Start Date: 01/05/22 Status: Orderedlisinopril 10 mg oral tablet 10 mg, 1, tablet, By Mouth, Daily, # 90 tablet, Refills 3, Tot. Refills 3, Maintenance, 10/23/21 11:15:00 EST, Route to Pharmacy Electronically, [facility], Partial fill upon patient request if the prescription is for a schedule II opi... Start Date: 10/23/21 Status: Orderedmeloxicam 15 mg oral tablet 1 tablet = 15 mg, By Mouth, Daily, # 14 tablet, 0 Refills, Maintenance, 01/24/22 15:01:00 EST, Tablet, [facility] Partial fill upon patient request if the prescription is for a schedule II opioid drug., 156, cm, 01/24/22 14:31:00 EST,... Start Date: 01/24/22 Stop Date: 02/07/22 Status: OrderedmetFORMIN 1000 mg oral tablet, extended release 1 tablet = 1,000 mg, By Mouth, 2 times a day, label in cymraes, # 180 tablet, 4 Refills, Maintenance, 03/29/21 9:27:00 EDT, [facility]., TO REPLACE 500 mg tablets - please review change with patient, 156, cm, 03/29/21 8:21:00 EDT, Height Start Date: 03/29/21 Stop Date: 06/22/22 Status: Orderedsertraline 100 mg oral tablet 1 tablet = 100 mg, By Mouth, Daily, instr cymraes; start after completing 50 mg tablets, # 30 tablet, 11 Refills, Maintenance, 07/10/21 15:51:00 EDT, Tablet, [facility]., Partial fill upon patient request if [...]
--- OUTSIDE RECORDS SUMMARY | 2022-10-14 16:35 | XMS_ITS | Continuity of Care Document ---
:1980 Author Organization [facility] Address [address] [place] [address]- Care Team Providers Name Role Phone Kim Archer DO Primary Care Physician Encounter [facility] Date(s): 04/10/21 - 05/10/21 [facility] [address] [place], [place] [address] Allergies, Adverse Reactions, Alerts Substance [...] tablet, 3 Refills, Maintenance, 09/30/20 11:11:00 EST, [facility], [facility] upon [facility] request, [...] 0 Refills, Maintenance, 04/25/21 13:48:00 EDT, Tablet, [facility]., Partial fill upon patient request if [...] 09/12/20 10:24:00 EDT, Route to Pharmacy Electronically, [facility]., 156, cm, 09/12/20 9:33:00 EDT, Height Start Date: 09/12/20 Status: OrderedLac-Hydrin 12% lotion 1 application, Topically, 2 times a day, instr belizean, # 567 Gm, 1 Refills, Maintenance, 01/12/21 16:46:00 EST, Lotion, [facility], Partial fill upon patient request if the prescription is for a schedule II opioid drug., 1 application... Start Date: 01/12/21 Status: OrderedLantus Solostar Pen 100 units/mL subcutaneous solution = 55 units, Subcutaneous Infusion, Daily, daily in am label in belizean, # 13.5 mL, 11 Refills, Maintenance, 01/30/21 14:01:00 EDT, [facility], 156, cm, 01/12/21 16:08:00 EST, Height Start Date: 01/30/21 Status: Orderedlisinopril 5 mg oral tablet 5 mg, 1, tablet, By Mouth, Daily, label in belizean, # 90 tablet, Refills 11, Tot. Refills 11, Maintenance, 09/12/20 10:21:00 EDT, Route to Pharmacy Electronically, [facility], 156, cm, 09/12/20 9:33:00 EDT, Height Start Date: 09/12/20 Status: OrderedmetFORMIN 1000 mg oral tablet, extended release 1 tablet = 1,000 mg, By Mouth, 2 times a day, label in belizean, # 180 tablet, 4 Refills, Maintenance, 03/29/21 9:27:00 EDT, [facility], TO REPLACE 500 mg tablets - please review change with patient, 156, cm, 03/29/21 8:21:00 EDT, Height Start Date: 03/29/21 Stop Date: 06/22/22 Status: Orderedpermethrin 5% topical cream 1 application, Topically, Once, Apply to skin from head to soles. Leave on 8-10 hours then wash off,# 60 mL, 0 Refills, Soft Stop, 05/04/21 14:40:00 EDT, Lotion, [facility], Instructions in belizean;, 1 application Topically Once,Instr... Start Date: 05/04/21 Status: Orderedsertraline 25 mg oral tablet 1 tablet = 25 mg, By Mouth, Daily, label in belizean, # 30 tablet, 11 Refills, Maintenance, 12/09/20 9:47:00 EST, Tablet, [facility]., Partial fill upon patient request if the prescription is for a schedule II opioid drug., 156, cm, 09/18... Start Date: 12/09/20 Status: OrderedTrulicity Pen 1.5 mg/0.5 mL subcutaneous solution 0.5 mL = 1.5 mg, Subcutaneous Injection, Every week, rotate injection sites label in belizean, # 2 mL, 11 Refills, Maintenance, 09/30/20 10:55:00 EST, Solution, [facility]., Partial fill upon patient request, 156, [...]
--- OUTSIDE RECORDS SUMMARY | 2022-10-14 16:35 | XMS_ITS | Continuity of Care Document ---
:1980 Author Organization [facility] Address [address] [place] [address]- Care Team Providers Name Role Phone Kim Archer DO Primary Care Physician Encounter [facility] Date(s): 03/06/21 - 04/09/21 [facility] [address] [place] [id number] Attending Physician: Campbell Russell MD Admitting Physician: Campbell Russell MD Allergies, Adverse Reactions, Alerts Substance Reaction Severity Status NKA Active Immunizations Given and Recorded Vaccine Date Status Refusal Reason tetanus/diphtheria/pertussis, acel(Tdap) 10/06/20 Given influenza virus vaccine, inactivated 10/06/20 Given Medications atorvastatin 10 mg oral tablet 1 tablet = 10 mg, By Mouth, Daily, label in [place] daily in bedtime, # 90 tablet, 3 Refills, Maintenance, 09/30/20 11:11:00 EST, [facility], Partial fill upon [...] 10:12:00 EDT, Height Start Date: 03/06/21 Status: OrderedFreestyle Lite Lancets See Instructions, # [...] By Mouth, Daily at bedtime, label in [place], # 90 capsule, Refills 1, Tot. Refills 1, Maintenance, 09/12/20 10:24:00 EDT, Route to Pharmacy Electronically, [facility], 156, cm, 09/12/20 9:33:00 EDT, Height Start Date: 09/12/20 Status: OrderedLac-Hydrin 12% lotion 1 application, Topically, 2 times a day, instr [place], # 567 Gm, 1 Refills, Maintenance, 01/12/21 16:46:00 EST, Lotion, [facility], Partial fill upon patient request if the prescription is for a schedule II opioid drug., 1 application... Start Date: 01/12/21 Status: OrderedLantus Solostar Pen 100 units/mL subcutaneous solution = 55 units, Subcutaneous Infusion, Daily, daily in am label in [place], # 13.5 mL, 11 Refills, Maintenance, 01/30/21 14:01:00 EDT, [facility], 156, cm, 01/12/21 16:08:00 EST, Height Start Date: 01/30/21 Status: Orderedlisinopril 5 mg oral tablet 5 mg, 1, tablet, By Mouth, Daily, label in [place], # 90 tablet, Refills 11, Tot. Refills 11, Maintenance, 09/12/20 10:21:00 EDT, Route to Pharmacy Electronically, [facility], 156, cm, 09/12/20 9:33:00 EDT, Height Start Date: 09/12/20 Status: OrderedmetFORMIN 1000 mg oral tablet, extended release 1 tablet = 1,000 mg, By Mouth, 2 times a day, label in [place], # 180 tablet, 4 Refills, Maintenance, 03/29/21 9:27:00 EDT, [facility], TO REPLACE 500 mg tablets - please review change with patient, 156, cm, 03/29/21 8:21:00 EDT, Height Start Date: 03/29/21 Stop Date: 06/22/22 Status: Orderedsertraline 25 mg oral tablet 1 tablet = 25 mg, By Mouth, Daily, label in [place], # 30 tablet, 11 Refills, Maintenance, 12/09/20 9:47:00 EST, Tablet, [facility], Partial fill upon patient request if the prescription is for a schedule II opioid drug., 156, cm, 09/18... Start Date: 12/09/20 Status: OrderedTrulicity Pen 1.5 mg/0.5 mL subcutaneous solution 0.5 mL = 1.5 mg, Subcutaneous Injection, Every week, rotate injection sites label in [place], # 2 mL, 11 Refills, Maintenance, 09/30/20 10:55:00 EST, Solution, [facility], Partial fill upon patient request, 156, [...]
--- OUTSIDE RECORDS SUMMARY | 2022-10-14 16:35 | XMS_ITS | Continuity of Care Document ---
:1980 Author Organization [facility] Address [address] [place] [phone]- Care Team Providers Name Role Phone Edwina PHAM, Natalie Primary Care Physician [facility]counter [facility] Date(s): 07/20/22 - 08/19/22 [facility] [address] [place] [phone]- Attending Physician: Shavon Rodas Admitting Physician: AdmtrShavon Referring Physician: Admtr, Ar8 Allergies, Adverse Reactions, Alerts No Known Allergies Immunizations Given and Recorded Vaccine Date Status Refusal Reason SARS-CoV-2 (COVID-19) mRNA BNT-162b2 vac 11/29/21 Recorde d SARS-CoV-2 (COVID-19) mRNA BNT-162b2 vac 04/14/21 Given tetanus/diphtheria/pertussis, acel(Tdap) 10/06/20 Given influenza virus vaccine, inactivated 10/06/20 Given Medications BD SHORT PEN NDL [id number] 31GX5/16 NEDL BD SHORT PEN NDL [id number] 31GX5/16 NEDL, See Instructions, # 120 Unknown, 5 Refills, Maintenance, [facility], 08/02/22 15:31:00 EDT, 156, cm, [...] Infusion, Daily, daily in am label in korean, # 15 mL, 11 Refills, Maintenance, 03/22/22 15:57:00 EDT, [facility], 156, cm, 03/22/22 15:05:00 EDT, Height Start Date: 03/22/22 Status: Orderedlisinopril 10 mg oral tablet 10 mg, 1, tablet, By Mouth, Daily, # 90 tablet, Refills 3, Tot. Refills 3, Maintenance, 10/23/21 11:15:00 EST, Route to Pharmacy Electronically, [facility], Partial fill upon patient request if the prescription is for a schedule II opi... Start Date: 10/23/21 Status: OrderedMetFORMIN (Eqv-Glucophage XR) 500 mg oral tablet, extended release See Instructions, ISRRAEL 2 TABLETA POR LA BOCA DOS VECES AL OTTO, # 120 tablet, 11 Refills, [facility], 156, cm, 03/22/22 15:05:00 EDT, Height Start [...] information PersonnelName: Natalie Bland MD Address: Address: [address] [place] [address] [place], [place] [address]
--- OUTSIDE RECORDS SUMMARY | 2022-10-14 16:35 | XMS_ITS | Continuity of Care Document ---
:1980 Author Organization [facility] Address [address] [place] [phone]- Care Team Providers Name Role Phone Kim Archer DO Primary Care Physician [facility]counter [facility] Date(s): 12/09/20 - 01/08/21 [facility] [address] [place] [phone]- Attending Physician: Shavon Rodas Admitting Physician: Shavon [...] tablet, 3 Refills, Maintenance, 09/30/20 11:11:00 EST[facility] [...] 09/12/20 10:24:00 EDT, Route to Pharmacy Electronically, [facility], 156, cm, 09/12/20 9:33:00 EDT, Height Start Date: 09/12/20 Status: OrderedLantus Solostar Pen 100 units/mL subcutaneous solution = 35 units, Subcutaneous Infusion, Daily, before a meal label in romanian, # 12 mL, 11 Refills, Maintenance, 09/12/20 10:20:00 EDT, [facility], 156, cm, 09/12/20 9:33:00 EDT, Height Start Date: 09/12/20 Status: Orderedlisinopril 5 mg oral tablet 5 mg, 1, tablet, By Mouth, Daily, label in romanian, # 90 tablet, Refills 11, Tot. Refills 11, Maintenance, 09/12/20 10:21:00 EDT, Route to Pharmacy Electronically, [facility], 156, cm, 09/12/20 9:33:00 EDT, Height Start Date: 09/12/20 Status: OrderedmetFORMIN 1000 mg oral tablet, extended release 1 tablet = 1,000 mg, By Mouth, Daily, label in romanian with evening meal, # 90 tablet, 3 Refills, Maintenance, 11/21/20 9:54:00 EST, [facility], Partial fill upon patient request if theprescription is for a schedule II opioid drug.,... Start Date: 11/21/20 Status: Orderedsertraline 25 mg oral tablet 1 tablet = 25 mg, By Mouth, Daily, label in romanian, # 30 tablet, 11 Refills, Maintenance, 12/09/20 9:47:00 EST, Tablet, [facility] Partial fill upon patient request if the prescription is for a schedule II opioid drug., 156, cm, 09/18... Start Date: 12/09/20 Status: OrderedTrulicity Pen 1.5 mg/0.5 mL subcutaneous solution 0.5 mL = 1.5 mg, Subcutaneous Injection, Every week, rotate injection sites label in romanian, # 2 mL, 11 Refills, Maintenance, 09/30/20 10:55:00 EST, Solution, [facility] Partial fill upon patient request, 156, cm, 09/30/20 10:26:00... Start Date: 09/30/20 Status: OrderedVistaril pamoate 50 mg oral capsule 1 capsule = 50 mg, By Mouth, Every 12 hours, label in romanian take first in evening may cause drowsiness, # 60 capsule, 0 Refills, Acute 01/22/21 10:12:00 EST, 11/21/20 10:10:00 EST, Capsule, [facility] Partial fill upon patient requ... Start Date: 11/21/20 Stop Date: 01/22/21 Status: Ordered Problem List Condition Effective Dates Status Health Status Informant Diabetes(Confirmed) Active Hyperlipidemia(Confirmed) Active Depression with anxiety(Confirmed) Active Obesity (BMI 30.0-34.9)(Confirmed) Active Diabetic retinopathy(Confirmed) Active Social History Social History Type Response Smoking Status Never (less than 100 in life time) entered on: 09/12/20 Sex
--- OUTSIDE RECORDS SUMMARY | 2022-10-14 16:35 | XMS_ITS | Continuity of Care Document ---
:1980 Author Organization [facility] Address [address] [place] [address]- Care Team Providers Name Role Phone Kim Archer DO Primary Care Physician Encounter [facility] [place] Date(s): 10/17/21 - 11/16/21 [facility] [address] [place] [id number]- Allergies, Adverse Reactions, Alerts Substance Reaction Severity [...] tablet, 3 Refills, Maintenance, 09/30/20 11:11:00 EST, [facility] upon [facility], [...] 09/12/20 10:24:00 EDT, Route to Pharmacy Electronically, [facility], 156, cm, 09/12/20 9:33:00 EDT, Height Start Date: 09/12/20 Status: OrderedLantus Solostar Pen 100 units/mL subcutaneous solution = 55 units, Subcutaneous Infusion, Daily, daily in am label in finnish, # 13.5 mL, 11 Refills, Maintenance, 10/10/21 17:10:00 EST, [facility], 156, cm, 07/10/21 14:53:00 EDT, Height Start Date: 10/10/21 Status: Orderedlisinopril 10 mg oral tablet 10 mg, 1, tablet, By Mouth, Daily, # 90 tablet, Refills 3, Tot. Refills 3, Maintenance, 10/23/21 11:15:00 EST, Route to Pharmacy Electronically, [facility], Partial fill upon patient request if the prescription is for a schedule II opi... Start Date: 10/23/21 Status: OrderedmetFORMIN 1000 mg oral tablet, extended release 1 tablet = 1,000 mg, By Mouth, 2 times a day, label in finnish, # 180 tablet, 4 Refills, Maintenance, 03/29/21 9:27:00 EDT, [facility], TO REPLACE 500 mg tablets - please review change with patient, 156, cm, 03/29/21 8:21:00 EDT, Height Start Date: 03/29/21 Stop Date: 06/22/22 Status: Orderedsertraline 100 mg oral tablet 1 tablet = 100 mg, By Mouth, Daily, instr finnish; start after completing 50 mg tablets, # 30 tablet, 11 Refills, Maintenance, 07/10/21 15:51:00 EDT, Tablet, [facility], Partial fill upon patient request if the prescription is for a sc... Start Date: 07/10/21 Status: OrderedTrulicity Pen 1.5 mg/0.5 mL subcutaneous solution 0.5 mL = 1.5 mg, Subcutaneous Injection, Every Saturday, rotate injection sites label in finnish, #2 mL, 11 Refills, Maintenance, 09/30/20 10:55:00 EST, Solution, [facility], Partial fill upon patient request, 156, [...]
--- OUTSIDE RECORDS SUMMARY | 2022-10-14 16:35 | XMS_ITS | Continuity of Care Document ---
:1980 Author Organization [facility] [employer] [facility] [facility] Address [address] [place] [address], [address] [place] [address]- Care Team Providers Name Role Phone Kim Archer DO Primary Care Physician Encounter [facility] Date(s): 07/20/21 - 08/24/21 [facility] [address] [address]- Attending Physician: Not on Staff, Attending MD Referring Physician: Kim Archer DO Allergies, Adverse Reactions, Alerts Substance Reaction Severity Status NKA Active Immunizations Given and Recorded Vaccine Date Status Refusal Reason SARS-CoV-2 (COVID-19) mRNA BNT-162b2 vac 04/14/21 Given tetanus/diphtheria/pertussis, acel(Tdap) 10/06/20 Given influenza virus vaccine, inactivated 10/06/20 Given Medications atorvastatin 10 mg oral tablet 1 tablet = 10 mg, By Mouth, Daily, label in cayman islander daily in bedtime, # 90 tablet, 3 Refills, Maintenance, 09/30/20 11:11:00 EST, [facility]., Partial fill upon patient request, 156, cm,09/30/20 10:26:00 EST, Height Start Date: 09/30/20 Status: Orderedcetirizine 10 mg oral tablet 1 tablet = 10 mg, By Mouth, Daily, # 30 tablet, 0 Refills, Maintenance, 04/25/21 13:48:00 EDT, Tablet, [facility]., Partial fill upon patient request if the prescription is for a schedule II opioid drug., 156, cm, 04/25/21 13:01:00 EDT,... Start Date: 04/25/21 Status: Orderedgabapentin 300 mg oral capsule 300 mg, 1, capsule, By Mouth, Daily at bedtime, label in cayman islander, # 90 capsule, Refills 1, Tot. Refills 1, Maintenance, 09/12/20 10:24:00 EDT, Route to Pharmacy Electronically, [facility], 156, cm, 09/12/20 9:33:00 EDT, Height Start Date: 09/12/20 Status: OrderedLac-Hydrin 12% lotion 1 application, Topically, 2 times a day, instr cayman islander, # 567 Gm, 1 Refills, Maintenance, 01/12/21 16:46:00 EST, Lotion, [facility], Partial fill upon patient request if the prescription is for a schedule II opioid drug., 1 application... Start Date: 01/12/21 Status: OrderedLantus Solostar Pen 100 units/mL subcutaneous solution = 55 units, Subcutaneous Infusion, Daily, daily in am label in cayman islander, # 13.5 mL, 11 Refills, Maintenance, 01/30/21 14:01:00 EDT, [facility], 156, cm, 01/12/21 16:08:00 EST, Height Start Date: 01/30/21 Status: Orderedlisinopril 5 mg oral tablet 5 mg, 1, tablet, By Mouth, Daily, label in cayman islander, # 90 tablet, Refills 11, Tot. Refills 11, Maintenance, 09/12/20 10:21:00 EDT, Route to Pharmacy Electronically, [facility], 156, cm, 09/12/20 9:33:00 EDT, Height Start Date: 09/12/20 Status: OrderedmetFORMIN 1000 mg oral tablet, extended release 1 tablet = 1,000 mg, By Mouth, 2 times a day, label in cayman islander, # 180 tablet, 4 Refills, Maintenance, 03/29/21 9:27:00 EDT, [facility], TO REPLACE 500 mg tablets - please review change with patient, 156, cm, 03/29/21 8:21:00 EDT, Height Start Date: 03/29/21 Stop Date: 06/22/22 Status: Orderedsertraline 100 mg oral tablet 1 tablet = 100 mg, By Mouth, Daily, instr cayman islander; start after completing 50 mg tablets, # 30 tablet, 11 Refills, Maintenance, 07/10/21 15:51:00 EDT, Tablet, [facility]., Partial fill upon patient request if the prescription is for a sc... Start Date: 07/10/21 Status: Orderedsertraline 50 mg oral tablet 1 tablet = 50 mg, By Mouth, Daily, instr cayman islander, # 14 tablet, 0 Refills, Maintenance, 07/10/21 15:51:00 EDT, Tablet, [facility]., Partial fill upon patient request if the prescription is for a schedule II opioid drug., 156, cm, ... Start Date: 07/10/21 Stop Date: 07/24/21 Status: OrderedTrulicity Pen 1.5 mg/0.5 mL subcutaneous solution 0.5 mL = 1.5 mg, Subcutaneous Injection, Every week, rotate injection sites label in cayman islander, # 2 mL, 11 Refills, Maintenance, 09/30/20 10:55:00 EST, Solution, [facility]., Partial fill upon patient request, [...]
--- OUTSIDE RECORDS SUMMARY | 2022-10-14 16:35 | XMS_ITS | Continuity of Care Document ---
:1980 Author Organization [facility] Address [address] [place] [address]- Care Team Providers Name Role Phone Kim Archer DO Primary Care Physician [place] [facility] [place](s): 07/11/21 - 09/27/21 [facility] [address] [place] [id number] Attending Physician: Kim Archer DO Admitting [...] tablet, 3 Refills, Maintenance, 09/30/20 11:11:00 EST, [facility]., Partial fill upon patient request, 156, cm,09/30/20 10:26:00 EST, Height Start Date: 09/30/20 Status: Orderedcetirizine 10 mg oral tablet 1 tablet = 10 mg, By Mouth, Daily, # 30 tablet, 0 Refills, Maintenance, 04/25/21 13:48:00 EDT, Tablet, [facility]., Partial fill upon patient request if the prescription is for a schedule II opioid drug., 156, cm, 04/25/21 13:01:00 EDT,... Start Date: 04/25/21 Status: Orderedgabapentin 300 mg oral capsule 300 mg, 1, capsule, By Mouth, Daily at bedtime, label in belgian, # 90 capsule, Refills 1, Tot. Refills 1, Maintenance, 09/12/20 10:24:00 EDT, Route to Pharmacy Electronically, [facility], 156, cm, 09/12/20 9:33:00 EDT, Height Start Date: 09/12/20 Status: OrderedLac-Hydrin 12% lotion 1 application, Topically, 2 times a day, instr belgian, # 567 Gm, 1 Refills, Maintenance, 01/12/21 16:46:00 EST, Lotion, [facility], Partial fill upon patient request if the prescription is for a schedule II opioid drug., 1 application... Start Date: 01/12/21 Status: OrderedLantus Solostar Pen 100 units/mL subcutaneous solution = 55 units, Subcutaneous Infusion, Daily, daily in am label in belgian, # 13.5 mL, 11 Refills, Maintenance, 01/30/21 14:01:00 EDT, [facility], 156, cm, 01/12/21 16:08:00 EST, Height Start Date: 01/30/21 Status: Orderedlisinopril 5 mg oral tablet 5 mg, 1, tablet, By Mouth, Daily, label in belgian, # 90 tablet, Refills 11, Tot. Refills [...] 11 Refills, Maintenance, 07/10/21 15:51:00 EDT, Tablet, [facility] Partial fill upon patient request if the prescription is for a sc... Start Date: 07/10/21 Status: Orderedsertraline 50 mg oral tablet 1 tablet = 50 mg, By Mouth, Daily, instr belgian, # 14 tablet, 0 Refills, Maintenance, 07/10/21 15:51:00 EDT, Tablet, [facility]., Partial fill upon patient request if the prescription is for a schedule II opioid drug., 156, cm, 2... Start Date: 07/10/21 Stop Date: 07/24/21 Status: OrderedTrulicity Pen 1.5 mg/0.5 mL subcutaneous solution 0.5 mL = 1.5 mg, Subcutaneous Injection, Every week, rotate injection sites label in belgian, # 2 mL, 11 Refills, Maintenance, 09/30/20 10:55:00 EST, Solution, [facility]., Partial fill upon patient request, 156, cm, [...]
--- OUTSIDE RECORDS SUMMARY | 2022-10-14 16:35 | XMS_ITS | Continuity of Care Document ---
:1980 Author Organization [facility] Address [address] [place] [address]- Care Team Providers Name Role Phone Edwina PHAM, Natalie Primary Care Physician [place] [facility] [place] 07/19[place]22 - 08/18/22 [facility] [address] [place] [phone]- Allergies, Adverse Reactions, Alerts No Known Allergies Immunizations Given and Recorded Vaccine Date Status Refusal Reason SARS-CoV-2 (COVID-19) mRNA BNT-162b2 vac 11/29/21 Recorde d SARS-CoV-2 (COVID-19) mRNA BNT-162b2 vac 04/14/21 Given tetanus/diphtheria/pertussis, acel(Tdap) 10/06/20 Given influenza virus vaccine, inactivated 10/06/20 Given Medications BD SHORT PEN NDL [id number] 31GX5/16 NEDL BD SHORT PEN NDL [id number] 31GX5/16 NEDL, See Instructions, # 120 Unknown, [...] Date: 07/20/22 Stop Date: 07/04/25 Status: OrderedHilario Moodyostar Pen 100 units/mL subcutaneous solution = 55 units, Subcutaneous Infusion, Daily, daily in am label in lebanese, # 15 mL, 11 Refills, Maintenance, 03/22/22 15:57:00 EDT, [facility] 156, cm, 03/22/22 15:05:00 EDT, Height Start Date: 03/22/22 Status: Orderedlisinopril 10 mg oral tablet 10 mg, 1, tablet, By Mouth, Daily, # 90 tablet, Refills 3, Tot. Refills 3, Maintenance, 10/23/21 11:15:00 EST, Route to Pharmacy Electronically, [facility], Partial fill upon patient request if the prescription is for a schedule II opi... Start Date: 10/23/21 Status: OrderedMetFORMIN (Eqv-Glucophage XR) 500 mg oral tablet, extended release See Instructions, [place]RRA[place] 2 TABLETA POR LA BOCA DOS VECES AL OTTO, # 120 tablet, 11 Refills, [facility], cm, 03/22/22 15:05:00 EDT, Height Start [...] information PersonnelName: Natalie Bland MD Address: Address: [address] [place] [address] [place] [address]-
== END 2022-10-14 16:31 | disposition home or self-care (01) ==
LOC: HO.ED 16:31
PROVIDERS: Emergency Provider Emergency Medicine
DX: M79.641 Pain in right hand (principal); Z79.899 Other long term (current) drug therapy
CPT/HCPCS: 73120; 99282; 99283

== ENCOUNTER 2023-08-13 17:14 | Emergency (ER) | payer OTHER, SELFPAY ==
[2023-08-13 17:25] VITALS: BP 116/80; PULSE 87; RESP 18; TEMP 36.7; O2SAT 99; BMI 30.2
--- NOTE | 2023-08-13 17:26 | ED_ITS ---
HPI - General Adult General Chief complaint: General Medical Stated complaint: Weakness, body aches, dizziness Related Data Previous Rx's ?Medication ?Instructions ?Recorded acetaminophen 500 mg tablet 1,000 mg (2 x 500 mg) PO QID PRN 02/15/22 pain #30 tabs ibuprofen 600 mg tablet 600 mg PO Q6H PRN fever or pain 02/15/22 #20 tabs Allergies Allergy/AdvReac Type Severity Reaction Status Date / Time No Known Allergies Allergy Verified 02/15/22 12:46 [facility] Past Medical History Medical History Diabetes Social History Social History Advance Directives: No Advance Directives Information Provided: No Physical Exam ED Vital Signs: BMI result Body Mass Index 30.2 Course Course Course Narrative: This is an RME: Additional HPI, ROS, PE not included below will be deferred to primary provider. 43 y o female presenting for evaluation of fatigue, nausea and dizziness, and requesting testing for possible . Unknown LMP. Denies fevers, chills, chest pain, shortness of breath, abdominal pain. Plan-- labs, HCG Medical Decision Making Lab Data 08/13/23 17:41 08/13/23 17:41 Labs: Lab Results 08/13/23 Range/Units 17:41 WBC 11.0 H (4.8-10.8) X10*3/uL RBC 5.04 (4.20-5.50) X10*6/uL Hgb 14.6 (12.0-16.0) g/dl Hct 43.4 (37.0-47.0) % MCV 86.1 (80.0-98.0) fL MCH 29.0 (27.0-33.0) pg MCHC 33.6 (31.0-35.0) g/dl RDW 13.9 (11.0-16.0) % Plt Count 198 (160-400) X10*3/uL MPV 11.9 (9.4-12.3) fL Immature Gran % (Auto) 0.5 H (0.0-0.4) % Neut % (Auto) 53.4 (45-73) % Lymph % (Auto) 38.1 (20-40) % Harper % (Auto) 6.0 (2-11) % Eos % (Auto) 1.7 (0-4) % Baso % (Auto) 0.3 (0-2) % Lymph # (Auto) 4.2 (1.2-4.9) X10*3/uL Harper # (Auto) 0.7 (0.1-1.2) X10*3/uL Eos # (Auto) 0.2 (0.0-0.4) X10*3/uL Baso # (Auto) 0.0 (0.0-0.2) X10*3/uL Abs Immat Gran (auto) 0.06 H (0.00-0.03) X10*3/uL Absolute Neuts (auto) 5.8 (2.0-8.3) x10*3/uL Absolute Nucleated RBC 0.000 (0.0-0.012) X10*3/uL Nucleated RBC % (auto) 0.0 (0.0-0.2) /100WBC Sodium 138 (135-145) mmol/L Potassium 4.0 (3.3-5.1) mmol/L Chloride 105 (96-108) mmol/L Carbon Dioxide 22 (22-29) mmol/L Anion Gap 15 (12-20) BUN 13 (9-16) mg/dL Creatinine 0.76 (0.5-1.4) mg/dL Estim Creat Clear Calc 86.0 Estimated GFR > 60 Random Glucose 128 H (60-115) mg/dL Calcium 9.9 (8.4-10.2) mg/dL Total Bilirubin 0.4 (0.0-1.0) mg/dL AST 19 (5-31) U/L ALT 21 (0-31) U/L Alkaline Phosphatase 63 (39-117) U/L Total Protein 7.5 (6.5-8.0) g/dL Albumin 4.0 (3.5-5.0) g/dL Beta HCG, Quant < 2 mIU/mL Discharge Plan Discharge Clinical Impression: Eloped from emergency department Patient Disposition: Left W/O Completing Treatment Prescriptions: No Action ibuprofen 600 mg tablet 600 mg PO Q6H PRN (Reason: fever or pain) Qty: 20 0RF acetaminophen 500 mg tablet 1,000 mg PO QID PRN (Reason: pain) Qty: 30 0RF Discharge Date/Time: 08/13/23 19:01
[2023-08-13 17:46] LABS: MANUAL DIFF FLAG NO
[2023-08-13 17:47] LABS: Basophils Percent Auto 0.3 % (0-2); Eosinophils Absolute Auto 0.2 X10*3/uL (0.0-0.4); Eosinophils Percent Auto 1.7 % (0-4); Hematocrit 43.4 % (37.0-47.0); Hemoglobin 14.6 g/dl (12.0-16.0); Imm Gran Abs Auto 0.06 X10*3/uL (0.00-0.03); Imm Gran Pct Auto 0.5 % (0.0-0.4); Lymphocytes Absolute Auto 4.2 X10*3/uL (1.2-4.9); Lymphocytes Percent Auto 38.1 % (20-40); Mean Corpuscular HGB Conc 33.6 g/dl (31.0-35.0); Mean Corpuscular Volume 86.1 fL (80.0-98.0); Mean Platelet Volume 11.9 fL (9.4-12.3); Monocytes Absolute Auto 0.7 X10*3/uL (0.1-1.2); Neutrophils Absolute Auto 5.8 x10*3/uL (2.0-8.3); Neutrophils Percent Auto 53.4 % (45-73); Platelet Count 198 X10*3/uL (160-400); Red Blood Count 5.04 X10*6/uL (4.20-5.50); Red Cell Distribution Width 13.9 % (11.0-16.0)
[2023-08-13 18:08] LABS: Alanine Aminotransferase 21 U/L (0-31); Alkaline Phosphatase 63 U/L (39-117); Anion Gap 15 (12-20); Aspartate Amino Transferase 19 U/L (5-31); Bilirubin Total 0.4 mg/dL (0.0-1.0); Blood Urea Nitrogen 13 mg/dL (9-16); Calcium 9.9 mg/dL (8.4-10.2); Carbon Dioxide 22 mmol/L (22-29); Chloride 105 mmol/L (96-108); Estimated Glomerular Filt Rate > 60; Glucose Random 128 mg/dL (60-115); HCG Quantitative < 2 mIU/mL; Sodium 138 mmol/L (135-145); Total Protein 7.5 g/dL (6.5-8.0)
== END 2023-08-13 19:01 | disposition left against medical advice (07) ==
PROVIDERS: Physician Assistant; Emergency Provider Emergency Medicine
DX: R53.1 Weakness (principal); M79.10 Myalgia, unspecified site; R42 Dizziness and giddiness; Z79.899 Other long term (current) drug therapy
CPT/HCPCS: 36415; 80053; 84702; 85025; 99281; 99283

== ENCOUNTER 2024-08-16 17:35 | Emergency (ER) | payer OTHER, SELFPAY ==
--- NOTE | ~2024-08-16 | XR_ITS ---
EXAMINATION: XR CHEST CLINICAL INFORMATION: Cough. Myalgias. COMPARISON: February 15, 2022. TECHNIQUE: 2 views of the chest were obtained. FINDINGS: No significant abnormality is noted involving the heart, lungs, mediastinum, or bony thorax. Small amorphous calcification projecting over the expected location of the insertion of the right supraspinatus tendon on the right humeral head, raising the possibility of calcific bursitis versus calcific tendinitis. XR/XR chest 2V IMPRESSION: No acute finding. Electronically signed by: Cuco Aquino MD 08/16/2024 06:22 PM EDT
--- NOTE | 2024-08-16 17:45 | ED_ITS ---
HPI - URI/Sore Throat General Chief Complaint: Upper Respiratory Symptoms Stated Complaint: body aches, cough, nausea Time Seen by Provider: 08/16/24 21:04 Source: patient, family and old records reviewed Mode of arrival: ambulatory Limitations: no limitations History of Present Illness ED Provider: SHAHIDA RIDDLE Narrative: 44 yo female with PMH of DM here with c/o recent travel back from [place] now with body aches, sore throat and sinus pressure and headaches. Subjective fevers and chills, no chest pain or dyspnea reported. She denies known sick contacts. She is eating and drinking. While on the flight she had severe pain in both face in ears due to pressure. She notes it has improved. MD elicited complaint: fever, sore throat, nasal congestion and sinus pain Onset (ago): day(s) (3) Consistency: constant Severity: moderate Able to tolerate fluids by mouth: Yes Exacerbating factors: swallowing Relieving factors: nothing Context: recent travel Associated symptoms: fever, chills, headache, nasal congestion, sore throat and cough Treatments prior to arrival: none Related Data Previous Rx's ?Medication ?Instructions ?Recorded acetaminophen 500 mg tablet 1,000 mg (2 x 500 mg) PO QID PRN 02/15/22 pain #30 tabs ibuprofen 600 mg tablet 600 mg PO Q6H PRN fever or pain 02/15/22 #20 tabs amoxicillin 875 mg-potassium 1 tab PO BID #14 tabs 08/16/24 clavulanate 125 mg tablet Allergies Allergy/AdvReac Type Severity Reaction Status Date / Time No Known Allergies Allergy Verified 08/16/24 17:49 Review of Systems Review of Systems: Constitutional : pos Fever, pos Chills, No Fatigue ENT/Mouth : pos sore throat, pos Rhinorrhea Eyes: No Eye Pain, No Swelling, No Redness Cardiovascular : No Chest Pain, No SOB, No Dyspnea on Exertion Respiratory : pos Cough, No Sputum Gastrointestinal : No Nausea, No Vomiting, No Diarrhea, No abdominal Pain Genitourinary : No Dysuria, No Urinary Frequency, No Hematuria, Musculoskeletal : No joint pain, pos Myalgias, No Joint Swelling Skin : No Skin Lesions, No rash Neuro : No Weakness, No Numbness, No Dizziness, positive Headache All other systems reviewed and are negative PMFSH Past Medical History Attestation statement: The following information was validated with the patient. Source: old records reviewed Medical History Diabetes Social History Social History (Updated 08/16/24 @ 21:38 by Mague Rios DO) Patient Tobacco Use Status: Tobacco use Unknown Physical Exam Vital Signs: Vital Signs: Last Vital Signs Temp 98.1 F 08/16/24 17:46 Pulse 84 08/16/24 17:46 Resp 18 08/16/24 17:46 BP 123/62 08/16/24 17:46 Pulse Ox 97 08/16/24 17:46 O2 Del Method Room Air 08/16/24 17:46 BMI result Body Mass Index 29.8 Appearance: Alert. Oriented X3. No acute distress. Eyes: Pupils equal, round and reactive to light. ENT: Pharynx mild erythema both tonsils uvula is midline no exudates, TMs normal bilaterally, both max sinus ttp no overt swelling Neck: Normal inspection. Neck supple. normal ROM no meningeal signs CVS: Normal heart rate and rhythm. Pulses normal. Respiratory: No respiratory distress. Breath sounds normal. Abdomen: Soft and nontender. Skin: Skin warm and dry. Normal skin color. Normal skin turgor. Extremities: No lower extremity edema. Neuro: Oriented X 3. No motor deficit. No sensory deficit. Course Course Course Narrative: This is an RME performed by Humera Vo CNP: Additional HPI, ROS, PE not included below will be deferred to primary provider. Patient is a 44-year-old female who presents emergency department for evaluation of 3 days with body aches, nausea, vomiting, diarrhea, cough, sore throat. is ill with similar symptoms. Plan: Viral serologies, CXR Medical Decision Making Medical Decision Making [facility] Narrative: 44 yo female with PMH of DM who just traveled back from [place] now with viral like illness and sinus congestion and pressure at this time will need viral panel, strep swab, CXR normal no pneumonia - suspect more sinusitis based off her presentation. She is not toxic, normal neuro doubt meningitis. PO augmentin ordered. Differential Diagnosis Differential Diagnoses: The differential diagnosis associated with the presentation includes viral syndrome, strep throat, sinusitis Admission/Observation Consideration of admission/observation: Escalation of care including admission/observation considered not toxic, can be managed as outpatient Lab Data [facility] Lab Attestation statement: I reviewed the patient's lab results. Labs: Lab Results 08/16/24 Range/Units 17:54 Influenza Type A (PCR) NEGATIVE (Negative) Influenza Type B (PCR) NEGATIVE (Negative) RSV RNA Qual (PCR) NEGATIVE (Negative) SARS-CoV-2 RNA (RT-PCR) NEGATIVE (Negative) Independent Interpretation I performed an independent interpretation of an: Plain X-Ray (normal ) Radiology Impression Discussion of test interpretation with radiology: I have reviewed the radiologist's reading. Independent Historian Clinical information obtained from an independent historian. History obtained from or confirmed by: Other (family) External Record Review External record reviewed: Outpatient record Prescription Management I considered prescription management with: Antibiotic Discharge Plan Discharge Clinical Impression: Sinusitis Qualifiers: Sinusitis location: maxillary Chronicity: acute Recurrence: non-recurrent Qualified Code(s): J01.00 - Acute maxillary sinusitis, unspecified Patient Disposition: Home, Self-Care Instructions: Sinusitis (ED) Additional Instructions: negative for flu covid rsv normal chest xray return for any worsening symptoms or concerns On amoxicillin-clavulanate, softer bowel movements are to be expected. Call your provider if you move your bowels more than 4 times a day, your bowel movements are almost all liquid, or you get a rash.? Prescriptions: New amoxicillin-pot clavulanate 875-125 mg tablet 1 tab PO BID Qty: 14 0RF No Action ibuprofen 600 mg tablet 600 mg PO Q6H PRN (Reason: fever or pain) Qty: 20 0RF acetaminophen 500 mg tablet 1,000 mg PO QID PRN (Reason: pain) Qty: 30 0RF Print Language: [place]
[2024-08-16 17:46] VITALS: BP 123/62; PULSE 84; RESP 18; TEMP 36.7; O2SAT 97; BMI 29.8
[2024-08-16 18:38] LABS: Influenza A PCR NEGATIVE (Negative); Influenza B PCR NEGATIVE (Negative); Resp Syncy Virus RNA Qual PCR NEGATIVE (Negative); SARS COV2 PCR INHOUSE NEGATIVE (Negative)
[2024-08-16 21:42] LABS: Strep A Nucleic Acid Negative (Negative)
[2024-08-16 21:43] LABS: IDNOW Serial# 08D9AD1C
[2024-08-16 21:45] VITALS: BP 128/64; PULSE 88; RESP 18; TEMP 36.6; O2SAT 97
[2024-08-16 21:52] VITALS: BP 128/64; PULSE 88; RESP 18; TEMP 36.6; O2SAT 97
[2024-08-16] MEDS: Amoxicillin/Potassium Clav 875 MG TABLET PO (21:55)
== END 2024-08-16 21:57 | disposition home or self-care (01) ==
PROVIDERS: Nurse Practitioner Family; Emergency Provider Emergency Medicine
DX: J01.00 Acute maxillary sinusitis, unspecified (principal); M79.10 Myalgia, unspecified site; R05.9 Cough, unspecified; R51.9 Headache, unspecified; R09.81 Nasal congestion; Z03.818 Encounter for observation for suspected exposure to other biological agents ruled out
CPT/HCPCS: 0241U; 71046; 87651; 99282; 99283